=== PATIENT | female | born 1970 ===

== ENCOUNTER → 2018-12-03 | Outpatient (CLI) | payer BC ==
--- NOTE | 2018-12-04 11:35 | MM ---
Reason for exam: screening (asymptomatic). Last mammogram was performed 5 years and 2 months ago. Physical Findings: A clinical breast exam by your physician is recommended on an annual basis and results should be correlated with mammographic findings. MG Screening Mammo w CAD Bilateral CC and MLO view(s) were taken. Prior study comparison: September 18, 2013, bilateral MG screening mammo w CAD. June 15, 2012, bilateral digital screening mammo w/CAD. There are scattered fibroglandular densities. No suspicious abnormality. No significant changes when compared with prior studies. ASSESSMENT: Negative, BI-RAD 1 RECOMMENDATION: Routine screening mammogram of both breasts in 1 year.
== END | disposition home or self-care (01) ==
LOC: RADMAMWWP 13:43
PROVIDERS: ATTEND Obstetrics & Gynecology
DX: Z12.31 Encounter for screening mammogram for malignant neoplasm of breast (principal)
CPT/HCPCS: 77067

== ENCOUNTER → 2019-08-15 | Outpatient (CLI) | payer BC ==
--- NOTE | 2019-08-15 12:14 | US ---
EXAMINATION TYPE: US abdomen limited DATE OF EXAM: 08/15/2019 COMPARISON: NONE CLINICAL HISTORY: Right upper quadrant pain, Nausea R10.11, R11.0. Intermittent right flank pain, shelli sea and bloating x 1 week EXAM MEASUREMENTS: Liver Length: 17.2 cm Gallbladder Wall: 0.2 cm CBD: 0.5 cm Right Kidney: 12.4 x 5.1 x 5.1 cm Pancreas: visualized portions wnl, tail limited by overlying midline bowel gas Liver: measures in upper limits of normal, 14.6 x 15.0 x 12.5cm mostly solid appearing hypoechoic ma ss posterior right lobe Gallbladder: wnl Evidence for sonographic Woodall's sign: no CBD: wnl Right Kidney: wnl IMPRESSION: 1. Appears be a large solid slightly heterogenous mass within the right lobe liver. Additional workup with contrast CT abdomen is recommended. A Yellow level critical message alert has been initiated for HUBERT Tello via the [facility] Critical Results System on 08/15/2019 12:12 PM. This message alert has been sent to HUBERT Tello vi a the preferences provided by the clinician for the receipt of Radiology Critical Findings. Message I [id number].
== END | disposition home or self-care (01) ==
LOC: RADUSWWP 09:42
PROVIDERS: ATTEND Physician Assistant Medical
DX: R16.0 Hepatomegaly, not elsewhere classified (principal)
CPT/HCPCS: 76705

== ENCOUNTER → 2019-08-22 | Outpatient (CLI) | payer BC ==
--- NOTE | 2019-08-22 17:41 | CT ---
EXAMINATION TYPE: CT abdomen wo/w con DATE OF EXAM: 08/22/2019 COMPARISON: HISTORY: abnormal US, liver neoplasm CT DLP: 705.3 mGycm Automated exposure control for dose reduction was used. CONTRAST: Performed without and with IV Contrast, patient injected with 100 mL of Isovue 300. Multiple axial sections were obtained from the diaphragm to the iliac crests without and with IV cont rast. There is also oral contrast. FINDINGS: The lung bases are clear. There is no pleural effusion. Heart size is normal. There is no pericardial effusion. There is a large mixed density mass involving most of the right lobe of the liver that measures 17 cm in anterior posterior dimension. The noncontrast images show higher attenuation in the posterior asp ect that could be areas of hemorrhage. The contrast images show some septal enhancement. Delayed imag es show no persistent contrast to suggest a hemangioma. The spleen appears normal. There is no evidence of pancreatic mass. Stomach appears normal. Heart haider ears normal. There is no pericardial effusion. There is no adrenal mass. Kidneys have normal size and contour. There is no hydronephrosis. There is satisfactory contrast opacification of the kidneys. There is no retroperitoneal adenopathy. Ureters a re not dilated. Appendix appears normal. There is no mesenteric edema. There is no ascites or free ai r. There is no sign of a bowel obstruction. Lumbar spine is intact. There is no compression fracture. There is normal oral contrast opacification of the small bowel. IMPRESSION: Large single mass involving the liver with probably some patchy posterior areas of hemorrhage and nec rosis and patchy enhancement that is suggestive of primary malignancy.
== END | disposition home or self-care (01) ==
LOC: RADCTMAIN 15:06
PROVIDERS: ATTEND Family Medicine
DX: D37.6 Neoplasm of uncertain behavior of liver, gallbladder and bile ducts (principal)
CPT/HCPCS: 74170; Q9967

== ENCOUNTER → 2020-07-30 | Outpatient (CLI) | payer BC ==
--- NOTE | 2020-07-30 08:12 | US ---
EXAMINATION TYPE: US pelvis complete transvag DATE OF EXAM: 07/30/2020 COMPARISON: NONE CLINICAL HISTORY: N88.9 Abn/Bulky cervix seen on CT at [facility]. TECHNIQUE: Transvaginal (TV) and Transabdominal (TA) . Transabdominal sonographic images of the pel vis were acquired. Transvaginal sonographic images were medically necessary to better assess the fol lowing anatomy: cervix and right ovary Date of LMP: Patient has colon cancer, no menses since treatment started which will be a year in Sep EXAM MEASUREMENTS: Uterus: 9.1x 4.7 x 5.0cm Endometrial Stripe: 0.6 cm Right Ovary: Obscured by overlying bowel gas Left Ovary: 2.6 x 1.4 x 1.4 cm 1. Uterus: Anteverted, heterogeneous 2. Endometrium: wnl 3. Right Ovary: Obscured by overlying bowel gas 4. Left Ovary: wnl 5. Bilateral Adnexa: free fluid in right adnexa 6. Posterior cul-de-sac: free fluid Anteverted uterus with surrounding free fluid in pelvis. Endometrial stripe appears within normal cortes its. Left ovary within normal limits. Right ovary not clearly identified. IMPRESSION: Moderate amount of free fluid in pelvic cul-de-sac.
== END | disposition home or self-care (01) ==
LOC: RADUSWWP 07:25
PROVIDERS: ATTEND Obstetrics & Gynecology
DX: N88.9 Noninflammatory disorder of cervix uteri, unspecified (principal)
CPT/HCPCS: 76830; 76856

== ENCOUNTER 2021-05-06 13:44 | Inpatient (IN) | payer BC ==
[2021-05-06] MEDS ORDERED: SODIUM CHLORIDE 0.9% 1,000 ML IV ONE (14:16)
--- NOTE | 2021-05-06 14:17 | ED ---
Recheck HPI - General Chief Complaint: Recheck/Abnormal Lab/Rx Stated Complaint: Low BP Source: patient, EMS Mode of arrival: EMS Limitations: no limitations - History of Present Illness Initial Comments: Taniya is a 89-year-old female with a history of metastatic colorectal cancer for which she underwent therapy at [facility], after failure therapy she began getting experimental therapy in [place]. She has completed her experimental therapy in [place] and is now being given supplements from that team. Patient presents to the ER today via EMS. Home health check on the patient today and she had a systolic blood pressure of 75 therefore EMS was was contacted. Upon EMS arrival patient was profoundly jaundiced, hypotensive appear dehydrated, she is quite weak but able to answer questions appropriately. She confirms that she would like to continue to pursue aggressive care and before code. She complains only of pain in her right upper quadrant which is chronic from the metastatic cancer. - Related Data Home Medications Medication Instructions Recorded Confirmed Justus 0.5mg 2 mg PO TID 05/06/21 05/06/21 Furosemide [Lasix] 20 mg PO BID 05/06/21 05/06/21 Ibuprofen [Motrin Ib] 200 mg PO BID 05/06/21 05/06/21 Samyr 500mg 500 mg PO TID 05/06/21 05/06/21 Skemca 500mg 1,000 mg PO BID 05/06/21 05/06/21 Spironolactone 50 mg PO BID 05/06/21 05/06/21 Ursofalk 250mg 250 mg PO TID 05/06/21 05/06/21 Allergies Allergy/AdvReac Type Severity Reaction Status Date / Time No Known Allergies Allergy Verified 05/06/21 14:48 Review of Systems ROS Statement: Those systems with pertinent positive or pertinent negative responses have been documented in the HPI. ROS Other: All systems not noted in ROS Statement are negative. Past Medical History Past Medical History: Cancer Additional Past Medical History / Comment(s): colorectal & liver metastasis History of Any Multi-Drug Resistant Organisms: None Reported Past Surgical History: Unable to Obtain Past Psychological History: No Psychological Hx Reported Smoking Status: Unknown if ever smoked Past Alcohol Use History: None Reported Past Drug Use History: None Reported General Exam - General Exam Comments Initial Comments: Physical Exam GENERAL: Ill appearing, profoundly jaundice HENT: Normocephalic, Atraumatic. EYES: PERRL, EOMI Scleral icterus PULMONARY: Unlabored respirations. CARDIOVASCULAR: There is a regular rate and rhythm without any murmurs gallops or rubs. ABDOMEN: palpable tender liver SKIN: Jaundice Bilateral tibial IO : Deferred NEUROLOGIC: Patient is alert and oriented x3. Moving all extremities spontaneously with generalized weakness MUSCULOSKELETAL: Atrophy Limitations: no limitations Course Vital Signs 05/06/21 05/06/21 13:45 13:50 Temperature 96.1 F L Pulse Rate 97 95 Respiratory 16 Rate Blood Pressure 74/40 89/53 O2 Sat by Pulse 98 98 Oximetry Medical Decision Making - Medical Decision Making The patient was seen and evaluated, history is obtained from the patient and daughter bedside. This patient is critically ill end-stage terminal metastatic colon cancer and liver failure. Patient was hypotensive on arrival she appears slightly dehydrated jaundice Labs were obtained and have multiple significant abnormalities consistent with the patient's exam and history Meld score is 33, which indicates greater than 50% mortality rate in the next 3 months Patient's daughter would like the patient to receive albumin as she has received this in the past. Patient like to remain in the hospital overnight for IV fluids and albumin. Patient care was discussed with Bree Steward from [facility] hospitalist group who accepts the admission. - Lab Data Result diagrams: 05/06/21 14:29 05/06/21 14:29 Lab Results 05/06/21 05/06/21 05/06/21 Range/Units 14:29 14:29 14:29 WBC 16.8 H (3.8-10.6) k/uL RBC 3.37 L (3.80-5.40) m/uL Hgb 10.9 L (11.4-16.0) gm/dL Hct 31.7 L (34.0-46.0) % MCV 94.1 (80.0-100.0) fL MCH 32.4 (25.0-35.0) pg MCHC 34.4 (31.0-37.0) g/dL RDW 27.9 H (11.5-15.5) % Plt Count 164 (150-450) k/uL MPV 9.2 Neutrophils % 97 % Lymphocytes % 2 % Monocytes % 1 % Eosinophils % 0 % Basophils % 0 % Neutrophils # 16.2 H (1.3-7.7) k/uL Lymphocytes # 0.3 L (1.0-4.8) k/uL Monocytes # 0.2 (0-1.0) k/uL Eosinophils # 0.0 (0-0.7) k/uL Basophils # 0.0 (0-0.2) k/uL Anisocytosis Marked Macrocytosis Moderate PT (9.0-12.0) sec INR (<1.2) APTT (22.0-30.0) sec VBG pH (7.31-7.41) VBG pCO2 (37-51) mmHg VBG HCO3 (24-28) mmol/L Sodium 119 L* (137-145) mmol/L Potassium 4.3 (3.5-5.1) mmol/L Chloride 90 L (98-107) mmol/L Carbon Dioxide 14 L (22-30) mmol/L Anion Gap 15 mmol/L BUN 119 H* (7-17) mg/dL Creatinine 2.28 H (0.52-1.04) mg/dL Est GFR (CKD-EPI)AfAm 28 (>60 ml/min/1.73 sqM) Est GFR (CKD-EPI)NonAf 25 (>60 ml/min/1.73 sqM) Glucose 121 H (74-99) mg/dL Plasma Lactic Acid Kameron 2.3 H* (0.7-2.0) mmol/L Calcium 8.5 (8.4-10.2) mg/dL Magnesium 2.8 H (1.6-2.3) mg/dL Total Bilirubin 28.5 H* (0.2-1.3) mg/dL AST 159 H (14-36) U/L ALT 77 H (4-34) U/L Alkaline Phosphatase 471 H (38-126) U/L Ammonia 36 H (<30) umol/L Total Protein 5.0 L (6.3-8.2) g/dL Albumin 2.4 L (3.5-5.0) g/dL Acetone, Qual Negative (Negative) 05/06/21 05/06/21 Range/Units 14:29 14:41 WBC (3.8-10.6) k/uL RBC (3.80-5.40) m/uL Hgb (11.4-16.0) gm/dL Hct (34.0-46.0) % MCV (80.0-100.0) fL MCH (25.0-35.0) pg MCHC (31.0-37.0) g/dL RDW (11.5-15.5) % Plt Count (150-450) k/uL MPV Neutrophils % % Lymphocytes % % Monocytes % % Eosinophils % % Basophils % % Neutrophils # (1.3-7.7) k/uL Lymphocytes # (1.0-4.8) k/uL Monocytes # (0-1.0) k/uL Eosinophils # (0-0.7) k/uL Basophils # (0-0.2) k/uL Anisocytosis Macrocytosis PT 12.6 H (9.0-12.0) sec INR 1.2 H (<1.2) APTT 26.6 (22.0-30.0) sec VBG pH 7.41 (7.31-7.41) VBG pCO2 27 L (37-51) mmHg VBG HCO3 17 L (24-28) mmol/L Sodium (137-145) mmol/L Potassium (3.5-5.1) mmol/L Chloride (98-107) mmol/L Carbon Dioxide (22-30) mmol/L Anion Gap mmol/L BUN (7-17) mg/dL Creatinine (0.52-1.04) mg/dL Est GFR (CKD-EPI)AfAm (>60 ml/min/1.73 sqM) Est GFR (CKD-EPI)NonAf (>60 ml/min/1.73 sqM) Glucose (74-99) mg/dL Plasma Lactic Acid Kameron (0.7-2.0) mmol/L Calcium (8.4-10.2) mg/dL Magnesium (1.6-2.3) mg/dL Total Bilirubin (0.2-1.3) mg/dL AST (14-36) U/L ALT (4-34) U/L Alkaline Phosphatase (38-126) U/L Ammonia (<30) umol/L Total Protein (6.3-8.2) g/dL Albumin (3.5-5.0) g/dL Acetone, Qual (Negative) Disposition Clinical Impression: Metastatic colon cancer in female, Liver failure, RUDY (acute kidney injury), Hyponatremia Disposition: ADMITTED IP TO THIS HOSP Condition: Critical Is patient prescribed a controlled substance at d/c from ED?: No Referrals: Criselda Bose MD [Primary Care Provider] - 1-2 days
[2021-05-06 14:45] LABS: VBG PH 7.41 (7.31-7.41)
[2021-05-06 14:50] LABS: Lactic Acid, Venous 2.3 mmol/L (0.7-2.0)
[2021-05-06 14:51] LABS: ALT 77 U/L (4-34); AST 159 U/L (14-36); Albumin 2.4 g/dL (3.5-5.0); Alkaline Phosphatase 471 U/L (38-126); Anion Gap 15 mmol/L; Calcium 8.5 mg/dL (8.4-10.2); Carbon Dioxide 14 mmol/L (22-30); Chloride 90 mmol/L (98-107); Glucose 121 mg/dL (74-99); Magnesium 2.8 mg/dL (1.6-2.3); Potassium 4.3 mmol/L (3.5-5.1)
[2021-05-06] MEDS: SODIUM CHLORIDE 0.9% 1,000 ML IV SCH (14:56)
[2021-05-06 14:57] LABS: African American GFR (CKD) 28 (>60 ml/min/1.73 sqM); Non-African American GFR(CKD) 25 (>60 ml/min/1.73 sqM)
[2021-05-06 14:58] LABS: Blood Urea Nitrogen 119 mg/dL (7-17); Sodium 119 mmol/L (137-145)
[2021-05-06 15:00] LABS: Total Bilirubin 28.5 mg/dL (0.2-1.3)
[2021-05-06 15:08] LABS: Anisocytosis Marked; Basophils % (A) 0 %; Eosinophils % (A) 0 %; HCT 31.7 % (34.0-46.0); HGB 10.9 gm/dL (11.4-16.0); Lymphocytes # (A) 0.3 k/uL (1.0-4.8); Lymphocytes % (A) 2 %; MCH 32.4 pg (25.0-35.0); MCHC 34.4 g/dL (31.0-37.0); MCV 94.1 fL (80.0-100.0); Macrocytosis Moderate; Mean Platelet Volume 9.2; Monocytes # (A) 0.2 k/uL (0-1.0); Monocytes % (A) 1 %; Neutrophils # (A) 16.2 k/uL (1.3-7.7); Neutrophils % (A) 97 %; Platelet Count 164 k/uL (150-450); RBC 3.37 m/uL (3.80-5.40); WBC 16.8 k/uL (3.8-10.6)
[2021-05-06 15:10] LABS: RDW 27.9 % (11.5-15.5)
[2021-05-06 15:46] LABS: INR 1.2 (<1.2); Partial Thromboplastin Time 26.6 sec (22.0-30.0); Prothrombin Time 12.6 sec (9.0-12.0)
[2021-05-06] MEDS ORDERED: NALOXONE 0.4 MG/ML 1 ML VIAL IV PRN (15:59)
[2021-05-06] MEDS: ALBUMIN HUMAN 25% 50 ML in EMPTY BAG 1 BAG IVPB SCH ×2 (16:27→16:30)
[2021-05-07 01:10] LABS: Appearance,Urine Cloudy (Clear); Bacteria,Urine Rare /hpf; Bilirubin,Urine 3+ (Negative); Blood,Urine Small (Negative); Color,Urine Dark Brown; Glucose,Urine (UA) Negative (Negative); Hyaline Casts,Urine 24 /lpf (0-2); Ketones,Urine Negative (Negative); Leukocyte Esterase,Urine Moderate (Negative); Mucus,Urine Occasional /hpf; Nitrite,Urine Negative (Negative); Protein,Urine Trace (Negative); RBC,Urine 3 /hpf (0-5); Specific Gravity,Urine 1.013 (1.001-1.035); Squamous Epithelial Cell,Urine 1 /hpf (0-4); WBC,Urine 16 /hpf (0-5)
[2021-05-07] MEDS: SODIUM CHLORIDE 0.9% 1,000 ML IV SCH ×3 (03:18→23:28)
[2021-05-07 11:42] LABS: Anion Gap 15 mmol/L; Calcium 8.3 mg/dL (8.4-10.2); Carbon Dioxide 10 mmol/L (22-30); Chloride 99 mmol/L (98-107); Glucose 109 mg/dL (74-99); Potassium 4.5 mmol/L (3.5-5.1); Sodium 124 mmol/L (137-145)
[2021-05-07 11:46] LABS: Blood Urea Nitrogen 107 mg/dL (7-17)
--- NOTE | 2021-05-07 12:06 | P.HPIM ---
History of Present Illness This is a pleasant 50 years old female with past medical history of colon cancer metastatic to the liver, lung, abdominal wall, she is following up with Dr. Cantu at [facility], last chemotherapy was about 6 months ago, then it was a [place] patient went to [place] to get experimental therapy, she stopped that 2 and came back to that states on 04/24/2021 she looks very weak and barely can tell from her weakness so information were obtained with the help of the daughter at bedside Patient has been getting IV fluids of albumin and [place] which help in her strength and appetite as well. Last week she went to [facility] emergency room where a drain was placed in her left lower abdomen, she visited the ER for abdominal distention, however as per daughter patient was found to have UTI and she was started on Macrobid. Today her visiting nurse was checking on her at noticed her blood pressure on the low side, usually systolic blood pressure running in 90s for her but yesterday was 74/42 so she decided to come to emergency room. Patient she feels very weak and her voice is very low, she can talk 1 or 2 sentences before she got tired. However she is fully awake and oriented to time, place and person as she knows she is in [facility] and others. She denies any dizziness or chest pain or shortness of breath. She has visual abdominal pain from her cancer. But also she's been having diarrhea about 3 times per day for the last 3 days but no vomiting. She eats and drinks little bit. No dysuria or urgency but she has suprapubic tenderness. Repeat labs showed sodium improved 119 up to 124 since 3 PM yesterday total 11 AM this morning, i.e. over 20 hours. She was getting normal saline at 130 mL per hour and the emergency room Review of Systems -CONSTITUTIONAL: No fever, very weak and tired HEENT: No recent visual problems or hearing problems. Denied any sore throat. CARDIOVASCULAR: No orthopnea, PND, no palpitations, no syncope. PULMONARY: No shortness of breath, no cough, no hemoptysis. GASTROINTESTINAL: No diarrhea, no nausea, no vomiting, no abdominal pain. Normoactive bowel sounds. NEUROLOGICAL: No headaches, no weakness, no numbness. HEMATOLOGICAL: Denies any bleeding or petechiae. GENITOURINARY: Denies any burning micturition, frequency, or urgency. MUSCULOSKELETAL/RHEUMATOLOGICAL: Denies any joint pain, swelling, or any muscle pain. ENDOCRINE: Denies any polyuria or polydipsia. Past Medical History Past Medical History: Cancer Additional Past Medical History / Comment(s): colorectal & liver metastasis History of Any Multi-Drug Resistant Organisms: None Reported Past Surgical History: Unable to Obtain Past Psychological History: No Psychological Hx Reported Smoking Status: Unknown if ever smoked Past Alcohol Use History: None Reported Past Drug Use History: None Reported Medications and Allergies Home Medications Medication Instructions Recorded Confirmed Type Justus 0.5mg 2 mg PO TID 05/06/21 05/06/21 History Furosemide [Lasix] 20 mg PO BID 05/06/21 05/06/21 History Ibuprofen [Motrin Ib] 200 mg PO BID 05/06/21 05/06/21 History Samyr 500mg 500 mg PO TID 05/06/21 05/06/21 History Skemca 500mg 1,000 mg PO BID 05/06/21 05/06/21 History Spironolactone 50 mg PO BID 05/06/21 05/06/21 History Ursofalk 250mg 250 mg PO TID 05/06/21 05/06/21 History Allergies Allergy/AdvReac Type Severity Reaction Status Date / Time No Known Allergies Allergy Verified 05/06/21 14:48 Physical Exam Vitals: Vital Signs Temp Pulse Pulse Resp BP BP Pulse Ox 05/07/21 08:45 97.4 F L 97 20 85/49 95 05/07/21 06:00 91 16 88/46 99 05/07/21 04:08 92 16 83/48 96 05/07/21 01:32 59 L 16 91/53 96 05/07/21 00:03 61 18 90/52 95 05/06/21 21:35 57 L 16 95/43 96 05/06/21 19:54 91 18 96/46 100 05/06/21 18:30 86 91/50 99 05/06/21 18:00 90 96/56 99 05/06/21 17:30 92 05/06/21 17:00 85 98/56 99 05/06/21 16:30 87 05/06/21 16:00 83 16 90/56 99 05/06/21 15:30 89 16 87/52 99 05/06/21 15:00 90 17 91/52 99 02/10/22 14:35 92 18 99 05/06/21 13:50 95 89/53 98 05/06/21 13:45 96.1 F L 97 16 74/40 98 GENERAL: The patient is alert and oriented x3, not in any acute distress. Cachectic HEENT: Pupils are round and equally reacting to light. EOMI. No scleral icterus. No conjunctival pallor. Normocephalic, atraumatic. No pharyngeal erythema. No thyromegaly. CARDIOVASCULAR: S1 and S2 present. No murmurs, rubs, or gallops. PULMONARY: Chest is clear to auscultation, no wheezing or crackles. -ABDOMEN: Soft, right upper quadrant tenderness, mild suprapubic tenderness,, distended, normoactive bowel sounds. No palpable organomegaly. yellow discoloration of skin and sclerae, jaundice. Abdominal wall nodule in the epigastric area MUSCULOSKELETAL: No joint swelling or deformity. EXTREMITIES: No cyanosis, clubbing, or pedal edema. NEUROLOGICAL: Gross neurological examination did not reveal any focal deficits. SKIN: No rashes. No petechiae Results CBC & Chem 7: 05/06/21 14:29 05/07/21 11:09 Labs: Abnormal Lab Results - Last 24 Hours (Table) 05/06/21 05/06/21 05/06/21 Range/Units 14:29 14:29 14:29 WBC 16.8 H (3.8-10.6) k/uL RBC 3.37 L (3.80-5.40) m/uL Hgb 10.9 L (11.4-16.0) gm/dL Hct 31.7 L (34.0-46.0) % RDW 27.9 H (11.5-15.5) % Neutrophils # 16.2 H (1.3-7.7) k/uL Lymphocytes # 0.3 L (1.0-4.8) k/uL PT (9.0-12.0) sec INR (<1.2) VBG pCO2 (37-51) mmHg VBG HCO3 (24-28) mmol/L Sodium 119 L* (137-145) mmol/L Chloride 90 L (98-107) mmol/L Carbon Dioxide 14 L (22-30) mmol/L BUN 119 H* (7-17) mg/dL Creatinine 2.28 H (0.52-1.04) mg/dL Glucose 121 H (74-99) mg/dL Plasma Lactic Acid Kameron 2.3 H* (0.7-2.0) mmol/L Calcium (8.4-10.2) mg/dL Magnesium 2.8 H (1.6-2.3) mg/dL Total Bilirubin 28.5 H* (0.2-1.3) mg/dL AST 159 H (14-36) U/L ALT 77 H (4-34) U/L Alkaline Phosphatase 471 H (38-126) U/L Ammonia 36 H (<30) umol/L Total Protein 5.0 L (6.3-8.2) g/dL Albumin 2.4 L (3.5-5.0) g/dL Urine Appearance (Clear) Urine Protein (Negative) Urine Blood (Negative) Urine Bilirubin (Negative) Ur Leukocyte Esterase (Negative) Urine WBC (0-5) /hpf Urine Bacteria (None) /hpf Hyaline Casts (0-2) /lpf Urine Mucus (None) /hpf 05/06/21 05/06/21 05/07/21 Range/Units 14:29 14:41 00:48 WBC (3.8-10.6) k/uL RBC (3.80-5.40) m/uL Hgb (11.4-16.0) gm/dL Hct (34.0-46.0) % RDW (11.5-15.5) % Neutrophils # (1.3-7.7) k/uL Lymphocytes # (1.0-4.8) k/uL PT 12.6 H (9.0-12.0) sec INR 1.2 H (<1.2) VBG pCO2 27 L (37-51) mmHg VBG HCO3 17 L (24-28) mmol/L Sodium (137-145) mmol/L Chloride (98-107) mmol/L Carbon Dioxide (22-30) mmol/L BUN (7-17) mg/dL Creatinine (0.52-1.04) mg/dL Glucose (74-99) mg/dL Plasma Lactic Acid Kameron (0.7-2.0) mmol/L Calcium (8.4-10.2) mg/dL Magnesium (1.6-2.3) mg/dL Total Bilirubin (0.2-1.3) mg/dL AST (14-36) U/L ALT (4-34) U/L Alkaline Phosphatase (38-126) U/L Ammonia (<30) umol/L Total Protein (6.3-8.2) g/dL Albumin (3.5-5.0) g/dL Urine Appearance Cloudy H (Clear) Urine Protein Trace H (Negative) Urine Blood Small H (Negative) Urine Bilirubin 3+ H (Negative) Ur Leukocyte Esterase Moderate H (Negative) Urine WBC 16 H (0-5) /hpf Urine Bacteria Rare H (None) /hpf Hyaline Casts 24 H (0-2) /lpf Urine Mucus Occasional H (None) /hpf 05/07/21 Range/Units 11:09 WBC (3.8-10.6) k/uL RBC (3.80-5.40) m/uL Hgb (11.4-16.0) gm/dL Hct (34.0-46.0) % RDW (11.5-15.5) % Neutrophils # (1.3-7.7) k/uL Lymphocytes # (1.0-4.8) k/uL PT (9.0-12.0) sec INR (<1.2) VBG pCO2 (37-51) mmHg VBG HCO3 (24-28) mmol/L Sodium 124 L (137-145) mmol/L Chloride (98-107) mmol/L Carbon Dioxide 10 L (22-30) mmol/L BUN 107 H* (7-17) mg/dL Creatinine (0.52-1.04) mg/dL Glucose 109 H (74-99) mg/dL Plasma Lactic Acid Kameron (0.7-2.0) mmol/L Calcium 8.3 L (8.4-10.2) mg/dL Magnesium (1.6-2.3) mg/dL Total Bilirubin (0.2-1.3) mg/dL AST (14-36) U/L ALT (4-34) U/L Alkaline Phosphatase (38-126) U/L Ammonia (<30) umol/L Total Protein (6.3-8.2) g/dL Albumin (3.5-5.0) g/dL Urine Appearance (Clear) Urine Protein (Negative) Urine Blood (Negative) Urine Bilirubin (Negative) Ur Leukocyte Esterase (Negative) Urine WBC (0-5) /hpf Urine Bacteria (None) /hpf Hyaline Casts (0-2) /lpf Urine Mucus (None) /hpf Assessment and Plan Assessment: Hyponatremia Acute kidney injury, could be prerenal. However patient was also on Lasix, Aldactone and ibuprofen which are stopped now. Acute urinary tract infection Dehydration and hypovolemia with low borderline blood pressure Colorectal cancer with metastasis to the liver, lung and abdominal Diarrhea, most likely reactive Plan: This is a pleasant 50 years old female presents with hyponatremia, RUDY, dehydration, diarrhea, UTI and metastatic colon cancer Continue with IV fluids and lower the rate to 100 mL/h Monitor sodium and creatinine Start ceftriaxone for UTI and follow-up urine culture Hold Aldactone and Lasix monitor blood pressure. Discontinue ibuprofen check for C. diff Check bladder scan oncology team consult Labs and medication were reviewed.. Continue same treatment. Continue with symptomatic treatment. Resume home medication. Monitor lytes and vitals. DVT and GI prophylaxis. Further recommendations depends on the clinical course of the patient DVT prophylaxis: Subcutaneous heparin GI Prophylaxis: Pepcid PT/OT: Pending Prognosis is guarded
[2021-05-07 13:03] LABS: Anisocytosis Marked; Basophils % (A) 0 %; Eosinophils # (A) 0.1 k/uL (0-0.7); Eosinophils % (A) 0 %; HCT 28.3 % (34.0-46.0); HGB 9.6 gm/dL (11.4-16.0); Hypochromasia Slight; Lymphocytes # (A) 0.3 k/uL (1.0-4.8); Lymphocytes % (A) 1 %; MCHC 33.9 g/dL (31.0-37.0); MCV 97.3 fL (80.0-100.0); Macrocytosis Moderate; Mean Platelet Volume 8.9; Monocytes # (A) 0.2 k/uL (0-1.0); Monocytes % (A) 1 %; Neutrophils # (A) 18.6 k/uL (1.3-7.7); Neutrophils % (A) 97 %; Platelet Count 115 k/uL (150-450); RBC 2.91 m/uL (3.80-5.40); WBC 19.2 k/uL (3.8-10.6)
[2021-05-07 13:07] LABS: RDW 28.5 % (11.5-15.5)
[2021-05-07 13:14] LABS: Albumin 2.5 g/dL (3.5-5.0); Calcium 8.1 mg/dL (8.4-10.2); Potassium 4.2 mmol/L (3.5-5.1)
[2021-05-07 13:24] LABS: Total Bilirubin 28.1 mg/dL (0.2-1.3)
[2021-05-07 13:25] LABS: Total Protein 4.9 g/dL (6.3-8.2)
[2021-05-07] MEDS ORDERED: dexAMETHasone 2 MG TAB PO STA (17:31)
[2021-05-07] MEDS: ALBUMIN HUMAN 25% 50 ML in EMPTY BAG 1 BAG IVPB SCH (18:28)
[2021-05-07 18:32] LABS: INR 1.3 (<1.2); Partial Thromboplastin Time 28.3 sec (22.0-30.0); Prothrombin Time 13.7 sec (9.0-12.0)
--- NOTE | 2021-05-07 19:45 | P.CONS ---
History of Present Illness - Reason for Consult Consult date: 05/07/21 Metastatic Colon Cancer Requesting physician: Bree Niño - Chief Complaint worsening abd pain, distentoion - History of Present Illness Taniya is a 50 year old female with known metastatic colon cancer treated by Dr. Cantu at the [facility]. Last treatment with chemotherapy was 6 months ago per the medical record. Apparently, she sought out additional options for treatment and traveled to [place] for treatment options not offered in the [place], returning to [facility] at the end of March 2021. Apparently recently admitted (a week ago) to [facility] ER for Abdominal distention and UTI, treated with Macrobid and pleurex in abdomen was placed for palliative draining of abdominal ascites. Patient is very weak and appears chronically ill. She was brought to [facility] due to hypotension at home and direction of homecare nurse. Her liver is failing with a total bili of 28 yesterday. BUN is 107, therefore she is uremic and likely not clotting as well. During evaluation daughter at bedside and states she was being treated in [place] with Dendritic cell vaccination, albumin ATC (could be what is contributing to the pictured uremic state), FREDERIC, Dexamethasone and a list of other naturopathic additions. Review of Systems ROS unobtainable: due to mental status All systems: negative Past Medical History Past Medical History: Cancer Additional Past Medical History / Comment(s): colorectal & liver metastasis History of Any Multi-Drug Resistant Organisms: None Reported Past Surgical History: Unable to Obtain Past Anesthesia/Blood Transfusion Reactions: No Reported Reaction Past Psychological History: No Psychological Hx Reported Smoking Status: Unknown if ever smoked Past Alcohol Use History: None Reported Past Drug Use History: None Reported Medications and Allergies Home Medications Medication Instructions Recorded Confirmed Type Justus 0.5mg 2 mg PO TID 05/06/21 05/06/21 History Furosemide [Lasix] 20 mg PO BID 05/06/21 05/06/21 History Ibuprofen [Motrin Ib] 200 mg PO BID 05/06/21 05/06/21 History Samyr 500mg 500 mg PO TID 05/06/21 05/06/21 History Skemca 500mg 1,000 mg PO BID 05/06/21 05/06/21 History Spironolactone 50 mg PO BID 05/06/21 05/06/21 History Ursofalk 250mg 250 mg PO TID 05/06/21 05/06/21 History Allergies Allergy/AdvReac Type Severity Reaction Status Date / Time No Known Allergies Allergy Verified 05/06/21 14:48 Physical Exam Vitals: Vital Signs Temp Pulse Pulse Resp BP BP Pulse Ox 05/07/21 08:45 97.4 F L 97 20 85/49 95 05/07/21 06:00 91 16 88/46 99 05/07/21 04:08 92 16 83/48 96 05/07/21 01:32 59 L 16 91/53 96 05/07/21 00:03 61 18 90/52 95 05/06/21 21:35 57 L 16 95/43 96 05/06/21 19:54 91 18 96/46 100 05/06/21 18:30 86 91/50 99 05/06/21 18:00 90 96/56 99 05/06/21 17:30 92 05/06/21 17:00 85 98/56 99 05/06/21 16:30 87 05/06/21 16:00 83 16 90/56 99 05/06/21 15:30 89 16 87/52 99 05/06/21 15:00 90 17 91/52 99 05/06/21 14:35 92 18 99 05/06/21 13:50 95 89/53 98 05/06/21 13:45 96.1 F L 97 16 74/40 98 Intake and Output 05/06/21 05/07/21 05/07/21 22:59 06:59 14:59 Other: Weight 56.699 kg Jaundice Ill appearing Weak Abdominal distention Edema Irreg Shallow breathes Results CBC & Chem 7: 05/07/21 12:34 05/07/21 12:34 Labs: Abnormal Lab Results - Last 24 Hours (Table) 05/06/21 05/06/21 05/06/21 Range/Units 14:29 14:29 14:29 WBC 16.8 H (3.8-10.6) k/uL RBC 3.37 L (3.80-5.40) m/uL Hgb 10.9 L (11.4-16.0) gm/dL Hct 31.7 L (34.0-46.0) % RDW 27.9 H (11.5-15.5) % Neutrophils # 16.2 H (1.3-7.7) k/uL Lymphocytes # 0.3 L (1.0-4.8) k/uL PT (9.0-12.0) sec INR (<1.2) VBG pCO2 (37-51) mmHg VBG HCO3 (24-28) mmol/L Sodium 119 L* (137-145) mmol/L Chloride 90 L (98-107) mmol/L Carbon Dioxide 14 L (22-30) mmol/L BUN 119 H* (7-17) mg/dL Creatinine 2.28 H (0.52-1.04) mg/dL Glucose 121 H (74-99) mg/dL Plasma Lactic Acid Kameron 2.3 H* (0.7-2.0) mmol/L Calcium (8.4-10.2) mg/dL Magnesium 2.8 H (1.6-2.3) mg/dL Total Bilirubin 28.5 H* (0.2-1.3) mg/dL AST 159 H (14-36) U/L ALT 77 H (4-34) U/L Alkaline Phosphatase 471 H (38-126) U/L Ammonia 36 H (<30) umol/L Total Protein 5.0 L (6.3-8.2) g/dL Albumin 2.4 L (3.5-5.0) g/dL Urine Appearance (Clear) Urine Protein (Negative) Urine Blood (Negative) Urine Bilirubin (Negative) Ur Leukocyte Esterase (Negative) Urine WBC (0-5) /hpf Urine Bacteria (None) /hpf Hyaline Casts (0-2) /lpf Urine Mucus (None) /hpf 05/06/21 05/06/21 05/07/21 Range/Units 14:29 14:41 00:48 WBC (3.8-10.6) k/uL RBC (3.80-5.40) m/uL Hgb (11.4-16.0) gm/dL Hct (34.0-46.0) % RDW (11.5-15.5) % Neutrophils # (1.3-7.7) k/uL Lymphocytes # (1.0-4.8) k/uL PT 12.6 H (9.0-12.0) sec INR 1.2 H (<1.2) VBG pCO2 27 L (37-51) mmHg VBG HCO3 17 L (24-28) mmol/L Sodium (137-145) mmol/L Chloride (98-107) mmol/L Carbon Dioxide (22-30) mmol/L BUN (7-17) mg/dL Creatinine (0.52-1.04) mg/dL Glucose (74-99) mg/dL Plasma Lactic Acid Kameron (0.7-2.0) mmol/L Calcium (8.4-10.2) mg/dL Magnesium (1.6-2.3) mg/dL Total Bilirubin (0.2-1.3) mg/dL AST (14-36) U/L ALT (4-34) U/L Alkaline Phosphatase (38-126) U/L Ammonia (<30) umol/L Total Protein (6.3-8.2) g/dL Albumin (3.5-5.0) g/dL Urine Appearance Cloudy H (Clear) Urine Protein Trace H (Negative) Urine Blood Small H (Negative) Urine Bilirubin 3+ H (Negative) Ur Leukocyte Esterase Moderate H (Negative) Urine WBC 16 H (0-5) /hpf Urine Bacteria Rare H (None) /hpf Hyaline Casts 24 H (0-2) /lpf Urine Mucus Occasional H (None) /hpf 05/07/21 Range/Units 11:09 WBC (3.8-10.6) k/uL RBC (3.80-5.40) m/uL Hgb (11.4-16.0) gm/dL Hct (34.0-46.0) % RDW (11.5-15.5) % Neutrophils # (1.3-7.7) k/uL Lymphocytes # (1.0-4.8) k/uL PT (9.0-12.0) sec INR (<1.2) VBG pCO2 (37-51) mmHg VBG HCO3 (24-28) mmol/L Sodium 124 L (137-145) mmol/L Chloride (98-107) mmol/L Carbon Dioxide 10 L (22-30) mmol/L BUN 107 H* (7-17) mg/dL Creatinine (0.52-1.04) mg/dL Glucose 109 H (74-99) mg/dL Plasma Lactic Acid Kameron (0.7-2.0) mmol/L Calcium 8.3 L (8.4-10.2) mg/dL Magnesium (1.6-2.3) mg/dL Total Bilirubin (0.2-1.3) mg/dL AST (14-36) U/L ALT (4-34) U/L Alkaline Phosphatase (38-126) U/L Ammonia (<30) umol/L Total Protein (6.3-8.2) g/dL Albumin (3.5-5.0) g/dL Urine Appearance (Clear) Urine Protein (Negative) Urine Blood (Negative) Urine Bilirubin (Negative) Ur Leukocyte Esterase (Negative) Urine WBC (0-5) /hpf Urine Bacteria (None) /hpf Hyaline Casts (0-2) /lpf Urine Mucus (None) /hpf Assessment and Plan (1) Uremic syndrome Current Visit: Yes Status: Acute Code(s): N19 - UNSPECIFIED KIDNEY FAILURE SNOMED Code(s): 43233082 (2) RUDY (acute kidney injury) Current Visit: Yes Status: Acute Code(s): N17.9 - ACUTE KIDNEY FAILURE, UNSPECIFIED SNOMED Code(s): 25665833 (3) Hyponatremia Current Visit: Yes Status: Acute Code(s): E87.1 - HYPO-OSMOLALITY AND HYPONATREMIA SNOMED Code(s): 72849285 (4) Liver failure Narrative/Plan: Total Bilirubin is 28, AST/ALT decreased this could be sign of biliary obstruction therefore will further assess with ultrasound. Add lactulose Current Visit: Yes Status: Acute Code(s): K72.90 - HEPATIC FAILURE, UNSPECIFIED WITHOUT COMA SNOMED Code(s): 27420273 (5) Metastatic colon cancer in female Narrative/Plan: Most recently treated in [place] with unapproved medication after progression through [facility]. Cantu at of Overall prognosis is very poor, patient and daughter are not ready for this realistic fact They have asked for continuation of medication prescribed in [place], explanation of inability to continue off label treatment but ok for albumin tid with third spacing, and to continue frederic. Dexamethasone completed. Current Visit: Yes Status: Acute Code(s): C18.9 - MALIGNANT NEOPLASM OF COLON, UNSPECIFIED SNOMED Code(s): 015043051 (6) Encephalopathy Narrative/Plan: Lactulose Current Visit: Yes Status: Acute Code(s): G93.40 - ENCEPHALOPATHY, UNSPECI FIED SNOMED Code(s): 85560172 Plan: Check stat coags and recheck LFTs. Overall prognosis is very poor Physician Attest: I have completed the full history and physical, developed the above assessment and plan and agree with above dictation, dictated as a ascribe
[2021-05-07] MEDS ORDERED: HEPARIN SODIUM,PORCINE/PF 5,000 UNIT/0.5 ML SYRINGE SQ SCH (21:00)
[2021-05-07] MEDS ORDERED: FUROSEMIDE 20 MG TAB PO STA (21:21)
[2021-05-07] MEDS: SPIRONOLACTONE 25 MG TAB PO SCH (22:16)
[2021-05-07] MEDS: LACTULOSE 20 GM/30 ML CUP PO SCH (23:28)
[2021-05-07] MEDS: FAMOTIDINE 20 MG/2 ML VIAL IV SCH (23:28)
[2021-05-08] MEDS: SODIUM CHLORIDE 0.9% 1,000 ML IV SCH ×2 (00:25→12:01)
[2021-05-08] MEDS: ALBUMIN HUMAN 25% 50 ML in EMPTY BAG 1 BAG IVPB SCH ×6 (00:26→18:16)
[2021-05-08] MEDS: metroNIDAZOLE-NS PMX 500 MG in SALINE 1 100ML.BAG IVPB SCH ×3 (00:28→15:32)
--- NOTE | 2021-05-08 08:05 | US ---
EXAMINATION TYPE: US abd limited kidneys/bladder DATE OF EXAM: 05/08/2021 COMPARISON: US CLINICAL HISTORY: rudy. RUDY, abnormal LFT's, known metastatic colon CA EXAM MEASUREMENTS: Liver Length: 18.9 cm CBD: 0.8 cm Right Kidney: 10.0 x 4.6 x 6.6 cm Left Kidney: 10.3 x 5.6 x 4.9 cm Pancreas: Obscured by bowel gas Liver: Enlarged, heterogeneous with innumerable masses scattered throughout, especially within right lobe Gallbladder: Unable to visualize due to large liver CBD: Dilated Right Kidney: No evidence of hydro Left Kidney: Difficult to visualize- pt immobile, and overlying bowel gas Bladder: wnl Bilateral Jets Seen No Incidental findings, spleen upper limits of normal for size, mild ascites, possible complex mass vs . septated ascites within midline pelvis, just superior to bladder= 17.9 x 11.2 x 15.1 cm IMPRESSION: 1. No evidence of obstructive uropathy. 2. A complex area within the abdomen is reported by the audit specialist, could represent additional site of metastatic colon cancer, complex complex ascites versus other pelvic etiologies. Cross-sectional i maging IV contrast would provide clarity. 3. Redemonstration of hepatic mass, seen dating back to 08/22/2019 4. Enlarged common bile duct
[2021-05-08] MEDS: SPIRONOLACTONE 25 MG TAB PO SCH ×2 (08:38→20:31)
[2021-05-08] MEDS: FUROSEMIDE 20 MG TAB PO SCH ×2 (08:38→08:46)
[2021-05-08] MEDS: LACTULOSE 20 GM/30 ML CUP PO SCH (08:38)
[2021-05-08] MEDS: FAMOTIDINE 20 MG/2 ML VIAL IV SCH (09:19)
[2021-05-08 09:37] LABS: Anisocytosis Marked; Basophils % (A) 0 %; Eosinophils % (A) 0 %; Hypochromasia Slight; Lymphocytes # (A) 0.3 k/uL (1.0-4.8); Lymphocytes % (A) 2 %; MCH 32.3 pg (25.0-35.0); MCHC 32.9 g/dL (31.0-37.0); MCV 98.3 fL (80.0-100.0); Macrocytosis Marked; Monocytes # (A) 0.2 k/uL (0-1.0); Monocytes % (A) 1 %; Neutrophils % (A) 97 %; RBC 2.34 m/uL (3.80-5.40); WBC 15.5 k/uL (3.8-10.6)
[2021-05-08 09:41] LABS: Albumin 2.7 g/dL (3.5-5.0); Bilirubin, Conjugated 17.7 mg/dL (0.0-0.3); Bilirubin,Unconjugated 2.2 mg/dL (0.0-1.1); Calcium 8.3 mg/dL (8.4-10.2); Potassium 3.9 mmol/L (3.5-5.1)
[2021-05-08 09:47] LABS: HGB 7.6 gm/dL (11.4-16.0); RDW 30.2 % (11.5-15.5)
[2021-05-08 09:48] LABS: Bilirubin, Delta 5.6 mg/dL (0.0-0.2)
[2021-05-08 09:53] LABS: Total Bilirubin 25.5 mg/dL (0.2-1.3)
[2021-05-08 09:54] LABS: Total Protein 4.8 g/dL (6.3-8.2)
[2021-05-08 11:29] LABS: Platelet Count 82 k/uL (150-450); Target Cells Present
[2021-05-08] MEDS: PANTOPRAZOLE 40 MG/10 ML VIAL IVP SCH (12:01)
--- NOTE | 2021-05-08 14:25 | PN ---
PROGRESS NOTE DATE OF SERVICE: 05/08/2021 CHIEF COMPLAINT: Very weak. Taniya seen today in followup. She is very weak. She is very cachectic. She denies any fever or chills or nausea or vomiting. CURRENT MEDICATION: Reviewed in her electronic medical record. PHYSICAL EXAMINATION: She is alert, oriented x3. She is very cachectic-looking and yellow-looking. She does not appear to be in pain. VITAL SIGNS: Temperature 97.4, pulse 92, respiration 18, blood pressure 93/61. HEENT: Normocephalic, atraumatic. She has significant scleral icterus. NECK: Supple. Lungs are clear. Heart is tachy. Abdomen is distended. Positive hepatomegaly. Extremities reveal trace edema. Skin is yellow, with multiple bruises. LAB DATA: WBC 15.5, hemoglobin 7.6, hematocrit 23.0, platelets 82. Sodium 128, potassium 3.9, chloride 101. BUN is 97, creatinine 1.2. AST is 104, ALT is 49, alkaline phosphatase is 315, and total bilirubin is 25.5. IMPRESSION: 1. End-stage colon carcinoma. Apparently the patient failed multiple lines of systemic treatment and subsequently went to [place] seeking alternative therapy. 2. Liver failure secondary to above. 3. Generalized cachexia and very poor performance status. RECOMMENDATIONS: 1. Overall prognosis is poor, but the patient and her daughter have unrealistic expectations and they are still hoping to seek additional treatment in [place] in the future. 2. Continue supportive care at this point in time and hopefully she may have some improvement in her overall condition, but that is doubtful. MMODL / IJN: [id number] /
--- NOTE | 2021-05-08 16:00 | P.PN ---
Subjective This is a pleasant 50 years old female with past medical history of colon cancer metastatic to the liver, lung, abdominal wall, she is following up with Dr. Cantu at [facility], last chemotherapy was about 6 months ago, then it was a Mau patient went to [place] to get experimental therapy, she stopped that 2 and came back to that states on 04/24/2021 she looks very weak and barely can tell from her weakness so information were obtained with the help of the daughter at bedside Patient has been getting IV fluids of albumin and [place] which help in her strength and appetite as well. Last week she went to [facility] emergency room where a drain was placed in her left lower abdomen, she visited the ER for abdominal distention, however as per daughter patient was found to have UTI and she was started on Macrobid. Today her visiting nurse was checking on her at noticed her blood pressure on the low side, usually systolic blood pressure running in 90s for her but yesterday was 74/42 so she decided to come to emergency room. Patient she feels very weak and her voice is very low, she can talk 1 or 2 sentences before she got tired. However she is fully awake and oriented to time, place and person as she knows she is in [facility] and others. She denies any dizziness or chest pain or shortness of breath. She has visual abdominal pain from her cancer. But also she's been having diarrhea about 3 times per day for the last 3 days but no vomiting. She eats and drinks little bit. No dysuria or urgency but she has suprapubic tenderness. Repeat labs showed sodium improved 119 up to 124 since 3 PM yesterday total 11 AM this morning, i.e. over 20 hours. She was getting normal saline at 130 mL per hour and the emergency room 05/08/2021 Patient slightly better today, she is fully awake and oriented to time, place and person, she is not confused today for hepatic encephalopathy is not suspected and does not need to be treated. Patient already has diarrhea 3-4 times this morning therefore lactulose was discontinued. This diarrhea is present on admission and is unrelated to lactulose. Acute gastroenteritis versus UTI is suspected. Protonix calcitonin is elevated 8.1 and patient is placed on ceftriaxone and IV Flagyl with gentle hydration also received IV of vomiting per oncology/hematology team. Urine culture is pending. Borderline blood pressure is expected as she has liver disease desires infection. Her liver function tests improvement creatinine down slowly 2.0-1.9 we will keep monitoring. Sodium improved 123 up to 128 in 24 hours. There is evidence of hemo-delusion with WBC 19.2 down to 15.5, hemoglobin 9.6 down to 7.6 and platelets 115 to 82.. Prognosis remains very poor Last night patient and daughter give her medication outside and without approval of the hospital staff, it was addressed by the bedside nurse during the consumer loan specialist, please refer to her notes. Patient and daughter consult to take indication only from the hospital and they agree Liver ultrasound showing hepatomegaly with masses, dilated common bile duct, complex area could be complex ascites versus metastatic mass in the abdomen. No obstructive uropathy Review of systems, except what is mentioned above CONSTITUTIONAL: No fever, no malaise, no fatigue. HEENT: No recent visual problems or hearing problems. Denied any sore throat. CARDIOVASCULAR: No orthopnea, PND, no palpitations, no syncope. PULMONARY: No shortness of breath, no cough, no hemoptysis. GASTROINTESTINAL: No diarrhea, no nausea, no vomiting, no abdominal pain. Normoactive bowel sounds. NEUROLOGICAL: No headaches, no weakness, no numbness. Active Medications Generic Name Dose Route Start Last Admin Trade Name Freq PRN Reason Stop Dose Admin Furosemide 20 mg 05/08/21 09:00 05/08/21 08:46 Furosemide 20 Mg Tab PO Not Given BID@0900,1600 AG Sodium Chloride 1,000 mls @ 100 mls/hr 05/06/21 14:30 05/08/21 12:01 Saline 0.9% IV 100 mls/hr .Q10H AG Administration Ceftriaxone Sodium 1 gm/ 50 mls @ 100 mls/hr 05/07/21 22:15 05/08/21 09:18 Sodium Chloride IVPB 100 mls/hr BID AG Administration Metronidazole 500 mg/ IV 100 mls @ 100 mls/hr 05/08/21 00:00 05/08/21 15:32 Solution IVPB 100 mls/hr Q8HR AG Administration Albumin Human 50 ml/ IV 50 mls @ 50 mls/hr 05/08/21 08:00 05/08/21 14:07 Solution IVPB 05/08/21 16:59 50 mls/hr Q8HR AG Administration Albumin Human 50 ml/ IV 50 mls @ 50 mls/hr 05/08/21 09:00 05/08/21 15:23 Solution IVPB 05/08/21 17:59 Not Given Q8H [facility] Naloxone HCl 0.2 mg 05/06/21 15:59 Naloxone 0.4 Mg/Ml 1 Ml Vial IV Q2M PRN Opioid Reversal Pantoprazole Sodium 40 mg 05/08/21 10:15 05/08/21 12:01 Pantoprazole 40 Mg/10 Ml Vial IVP Not Given DAILY [facility] Spironolactone 50 mg 05/07/21 21:00 05/08/21 08:38 Spironolactone 25 Mg Tab PO Not Given BID [facility] Objective - Vital Signs Vital signs: Vital Signs Temp 97.4 F L 05/08/21 08:00 Pulse 92 05/08/21 12:07 Resp 18 05/08/21 12:07 BP 93/61 05/08/21 12:07 Pulse Ox 98 05/08/21 12:07 Intake & Output 05/07/21 05/08/21 05/08/21 18:59 06:59 18:59 Intake Total 240 1310 Output Total 350 Balance 240 960 Intake: Intake, IV Titration 950 Amount Albumin Human 25% 50 ml 50 In Empty Bag 1 bag @ 50 mls/hr IVPB Q8HR [facility] Rx#: [id number] Sodium Chloride 0.9% 1, 700 000 ml @ 100 mls/hr IV . Q10H AG Rx#:[id number] cefTRIAXone 1 gm In 100 Sodium Chloride 0.9% 50 ml @ 100 mls/hr IVPB BID AG Rx#:[id number] metroNIDAZOLE-NS PMX 500 100 mg In Saline 1 100ml.bag @ 100 mls/hr IVPB Q8HR AG Rx#:[id number] Oral 240 360 Output: Urine 350 Other: # Voids 3 3 # Bowel Movements 2 3 - Exam -GENERAL: The patient is alert and oriented x3, not in any acute distress. Cachectic, jaundiced HEENT: Pupils are round and equally reacting to light. EOMI. No scleral icterus. No conjunctival pallor. Normocephalic, atraumatic. No pharyngeal erythema. No thyromegaly. CARDIOVASCULAR: S1 and S2 present. No murmurs, rubs, or gallops. PULMONARY: Chest is clear to auscultation, no wheezing or crackles. -ABDOMEN: Soft, right upper quadrant tenderness, mild suprapubic tenderness,, less distended, normoactive bowel sounds. No palpable organomegaly. yellow discoloration of skin and sclerae, jaundice. Abdominal wall nodule in the epigastric area MUSCULOSKELETAL: No joint swelling or deformity. EXTREMITIES: No cyanosis, clubbing, or pedal edema. NEUROLOGICAL: Gross neurological examination did not reveal any focal deficits. SKIN: No rashes. No petechiae - Labs CBC & Chem 7: 05/08/21 08:49 05/08/21 08:49 Labs: Abnormal Lab Results - Last 24 Hours (Table) 05/07/21 05/07/21 05/07/21 Range/Units 12:34 12:34 17:48 WBC (3.8-10.6) k/uL RBC (3.80-5.40) m/uL Hgb (11.4-16.0) gm/dL Hct (34.0-46.0) % RDW (11.5-15.5) % Plt Count (150-450) k/uL Neutrophils # (1.3-7.7) k/uL Lymphocytes # (1.0-4.8) k/uL Macrocytosis PT 13.7 H (9.0-12.0) sec INR 1.3 H (<1.2) Sodium 123 L (137-145) mmol/L Carbon Dioxide 11 L (22-30) mmol/L BUN 107 H* (7-17) mg/dL Creatinine 2.01 H (0.52-1.04) mg/dL Glucose 112 H (74-99) mg/dL Calcium 8.1 L (8.4-10.2) mg/dL Total Bilirubin 28.1 H* (0.2-1.3) mg/dL Conjugated Bilirubin (0.0-0.3) mg/dL Unconjugated Bilirubin (0.0-1.1) mg/dL Delta Bilirubin (0.0-0.2) mg/dL AST 123 H (14-36) U/L ALT 62 H (4-34) U/L Alkaline Phosphatase 384 H (38-126) U/L Total Protein 4.9 L (6.3-8.2) g/dL Albumin 2.5 L (3.5-5.0) g/dL Procalcitonin 8.19 H (0.02-0.09) ng/mL 05/08/21 05/08/21 Range/Units 08:49 08:49 WBC 15.5 H (3.8-10.6) k/uL RBC 2.34 L (3.80-5.40) m/uL Hgb 7.6 L D (11.4-16.0) gm/dL Hct 23.0 L (34.0-46.0) % RDW 30.2 H (11.5-15.5) % Plt Count 82 L (150-450) k/uL Neutrophils # 15.0 H (1.3-7.7) k/uL Lymphocytes # 0.3 L (1.0-4.8) k/uL Macrocytosis Marked A PT (9.0-12.0) sec INR (<1.2) Sodium 128 L (137-145) mmol/L Carbon Dioxide 12 L (22-30) mmol/L BUN 97 H (7-17) mg/dL Creatinine 1.90 H (0.52-1.04) mg/dL Glucose 113 H (74-99) mg/dL Calcium 8.3 L (8.4-10.2) mg/dL Total Bilirubin 25.5 H* (0.2-1.3) mg/dL Conjugated Bilirubin 17.7 H (0.0-0.3) mg/dL Unconjugated Bilirubin 2.2 H (0.0-1.1) mg/dL Delta Bilirubin 5.6 H (0.0-0.2) mg/dL AST 104 H (14-36) U/L ALT 49 H (4-34) U/L Alkaline Phosphatase 315 H (38-126) U/L Total Protein 4.8 L (6.3-8.2) g/dL Albumin 2.7 L (3.5-5.0) g/dL Procalcitonin (0.02-0.09) ng/mL Microbiology - Last 24 Hours (Table) 05/07/21 00:48 Urine Culture - Preliminary Urine,Voided Assessment and Plan Assessment: Hyponatremia Acute kidney injury, could be prerenal. However patient was also on Lasix, Aldactone and ibuprofen which are stopped now. Acute urinary tract infection Dehydration and hypovolemia with low borderline blood pressure Colorectal cancer with metastasis to the liver, lung and abdominal Diarrhea, most likely reactive Plan: This is a pleasant 50 years old female presents with hyponatremia, RUDY, dehydration, diarrhea, UTI and metastatic colon cancer Continue with IV fluids and lower the rate to 100 mL/h Monitor sodium and creatinine Start ceftriaxone for UTI and follow-up urine culture . At Flagyl Continue with Aldactone and Lasix monitor blood pressure. Discontinue ibuprofen check for C. diff Check bladder scan oncology team consult Labs and medication were reviewed.. Continue same treatment. Continue with symptomatic treatment. Resume home medication. Monitor lytes and vitals. DVT and GI prophylaxis. Further recommendations depends on the clinical course of the patient DVT prophylaxis: Subcutaneous heparin GI Prophylaxis: Pepcid PT/OT: Pending Prognosis is guarded
[2021-05-09] MEDS: metroNIDAZOLE-NS PMX 500 MG in SALINE 1 100ML.BAG IVPB SCH ×4 (00:03→23:53)
[2021-05-09] MEDS: SODIUM CHLORIDE 0.9% 1,000 ML IV SCH ×2 (00:04→05:13)
[2021-05-09 09:08] LABS: Magnesium 2.7 mg/dL (1.5-2.4)
[2021-05-09] MEDS: SPIRONOLACTONE 25 MG TAB PO SCH ×2 (09:29→21:56)
[2021-05-09] MEDS: PANTOPRAZOLE 40 MG/10 ML VIAL IVP SCH (09:29)
[2021-05-09] MEDS: FUROSEMIDE 20 MG TAB PO SCH ×2 (09:30→16:29)
[2021-05-09 09:42] LABS: African American GFR (CKD) 50.1 (60.0-200.0); Albumin 3.2 g/dL (3.8-4.9); Albumin/Globulin Ratio 4.46 (1.60-3.17); Anion Gap 16.5 mmol/L (10.00-18.00); BUN/Creat Ratio 48.94 Ratio (12.00-20.00); Blood Urea Nitrogen 69.5 mg/dL (9.0-27.0); Calcium 8.3 mg/dL (8.7-10.3); Carbon Dioxide 13.9 mmol/L (20.0-27.5); Globulin 0.7 g/dL (1.6-3.3); Potassium 3.5 mmol/L (3.5-5.5); Total Bilirubin 20.1 mg/dL (0.30-1.20); Total Protein 3.9 g/dL (6.2-8.2)
[2021-05-09 09:46] LABS: Basophils # (A) 0.01 X 10*3/uL (0.00-0.10); Basophils % (A) 0 %; Eosinophils # (A) 0 X 10*3/uL (0.04-0.35); Eosinophils % (A) 0 %; HCT 20.5 % (37.2-46.3); Immature Grans, Automated 0.9 %; Lymphocytes # (A) 0.38 X 10*3/uL (0.90-5.00); Lymphocytes % (A) 1.8 %; MCHC 32.7 g/dL (32.0-37.0); MCV 94.9 fL (80.0-97.0); Mean Platelet Volume 11.7 fL (9.5-12.2); Monocytes % (A) 1.4 %; NRBC Per 100 WBC 0.1 /100 WBCS (0.0-0.0); Neutrophils # (A) 20.62 X 10*3/uL (1.80-7.70); Neutrophils % (A) 95.9 %; Platelet Count 77 X 10*3/uL (140-440); RBC 2.16 X 10*6/uL (4.10-5.20)
[2021-05-09 09:47] LABS: Anisocytosis (M) 3+; Hypochromasia (M) 2+
[2021-05-09 09:55] LABS: Non-African American GFR(CKD) 43.3 (60.0-200.0)
[2021-05-09 10:02] LABS: HGB 6.7 g/dL (12.0-15.0); Immature Platelet Fraction 8.2 % (1.1-6.1)
[2021-05-09] MEDS ORDERED: FUROSEMIDE 10 MG/ML 2 ML VIAL IV ONE (13:34)
[2021-05-09] MEDS ORDERED: MIDODRINE 5 MG TAB PO SCH (16:00)
--- NOTE | 2021-05-09 16:07 | P.PN ---
Subjective This is a pleasant 50 years old female with past medical history of colon cancer metastatic to the liver, lung, abdominal wall, she is following up with Dr. Cantu at [facility], last chemotherapy was about 6 months ago, then it was a Mau patient went to [place] to get experimental therapy, she stopped that 2 and came back to that states on 04/24/2021 she looks very weak and barely can tell from her weakness so information were obtained with the help of the daughter at bedside Patient has been getting IV fluids of albumin and [place] which help in her strength and appetite as well. Last week she went to [facility] emergency room where a drain was placed in her left lower abdomen, she visited the ER for abdominal distention, however as per daughter patient was found to have UTI and she was started on Macrobid. Today her visiting nurse was checking on her at noticed her blood pressure on the low side, usually systolic blood pressure running in 90s for her but yesterday was 74/42 so she decided to come to emergency room. Patient she feels very weak and her voice is very low, she can talk 1 or 2 sentences before she got tired. However she is fully awake and oriented to time, place and person as she knows she is in [facility] and others. She denies any dizziness or chest pain or shortness of breath. She has visual abdominal pain from her cancer. But also she's been having diarrhea about 3 times per day for the last 3 days but no vomiting. She eats and drinks little bit. No dysuria or urgency but she has suprapubic tenderness. Repeat labs showed sodium improved 119 up to 124 since 3 PM yesterday total 11 AM this morning, i.e. over 20 hours. She was getting normal saline at 130 mL per hour and the emergency room 05/08/2021 Patient slightly better today, she is fully awake and oriented to time, place and person, she is not confused today for hepatic encephalopathy is not suspected and does not need to be treated. Patient already has diarrhea 3-4 times this morning therefore lactulose was discontinued. This diarrhea is present on admission and is unrelated to lactulose. Acute gastroenteritis versus UTI is suspected. Protonix calcitonin is elevated 8.1 and patient is placed on ceftriaxone and IV Flagyl with gentle hydration also received IV of vomiting per oncology/hematology team. Urine culture is pending. Borderline blood pressure is expected as she has liver disease desires infection. Her liver function tests improvement creatinine down slowly 2.0-1.9 we will keep monitoring. Sodium improved 123 up to 128 in 24 hours. There is evidence of hemo-delusion with WBC 19.2 down to 15.5, hemoglobin 9.6 down to 7.6 and platelets 115 to 82.. Prognosis remains very poor Last night patient and daughter give her medication outside and without approval of the hospital staff, it was addressed by the bedside nurse during the shift leader, please refer to her notes. Patient and daughter consult to take indication only from the hospital and they agree Liver ultrasound showing hepatomegaly with masses, dilated common bile duct, complex area could be complex ascites versus metastatic mass in the abdomen. No obstructive uropathy 05/09/2021 Patient today reports improvement, however she still generally weak and jaundiced. Her abdominal distention is significantly lost almost gone today on examination and her right upper quadrant tenderness and suprapubic tenderness present on admission are completely resolved today. Patient not sure if he still have diarrhea and how many times. Daughter at bedside as well. Her labs showing improvement with WBC went up slightly to 21.5 but her procalcitonin improved 8.1 down to 3.0. Platelets still low 77 which is expected however her hemoglobin coming down to 9.6, 7.6 and today 6.7 and there is no evidence of bleeding, we will order anemia workup. Also went on to repeat hemoglobin in the evening and if drops less than 6.5 we'll give 1 unit of blood transfusion. Creatinine actually back to reference range today at 1.4, sodium improved 133, there were enzymes still trending down with AST 97 and ALT 45 bilirubin although still significantly elevated but is also coming nicely down 28, 25 and 20 today. Blood pressure on the low side 77/61, IV fluids were already stopped therefore we going to give albumin times one also with lower the dose of Aldactone 50 down to 25 mg twice a day. Also patient remains on small dose of Lasix 20 mg twice a day. In the meantime she remains on ceftriaxone, IV Flagyl, Objective - Vital Signs Vital signs: Vital Signs Temp 97.5 F L 05/09/21 05:00 Pulse 95 05/09/21 05:00 Resp 16 05/09/21 05:00 BP 95/57 05/09/21 05:00 Pulse Ox 100 05/09/21 05:00 Intake & Output 05/08/21 05/09/21 05/09/21 18:59 06:59 18:59 Intake Total 1350 Balance 1350 Intake: Intake, IV Titration 1350 Amount Sodium Chloride 0.9% 1, 1200 000 ml @ 100 mls/hr IV . Q10H AG Rx#:[id number] cefTRIAXone 1 gm In 50 Sodium Chloride 0.9% 50 ml @ 100 mls/hr IVPB BID AG Rx#:[id number] metroNIDAZOLE-NS PMX 500 100 mg In Saline 1 100ml.bag @ 100 mls/hr IVPB Q8HR AG Rx#:[id number] Other: # Voids 1 3 # Bowel Movements 1 - Exam -GENERAL: The patient is alert and oriented x3, not in any acute distress. Cachectic, jaundiced HEENT: Pupils are round and equally reacting to light. EOMI. No scleral icterus. No conjunctival pallor. Normocephalic, atraumatic. No pharyngeal erythema. No thyromegaly. CARDIOVASCULAR: S1 and S2 present. No murmurs, rubs, or gallops. PULMONARY: Chest is clear to auscultation, no wheezing or crackles. -ABDOMEN: Soft, right upper quadrant tenderness, mild suprapubic tenderness,, less distended, normoactive bowel sounds. No palpable organomegaly. yellow discoloration of skin and sclerae, jaundice. Abdominal wall nodule in the epigastric area MUSCULOSKELETAL: No joint swelling or deformity. EXTREMITIES: No cyanosis, clubbing, or pedal edema. NEUROLOGICAL: Gross neurological examination did not reveal any focal deficits. SKIN: No rashes. No petechiae - Labs CBC & Chem 7: 05/09/21 06:55 05/09/21 06:55 Labs: Abnormal Lab Results - Last 24 Hours (Table) 05/08/21 05/08/21 05/09/21 Range/Units 08:49 08:49 06:55 WBC (4.50-10.00) X 10*3/uL RBC (4.10-5.20) X 10*6/uL Hgb (12.0-15.0) g/dL Hct (37.2-46.3) % RDW (11.5-14.5) % Plt Count 82 L (150-450) k/uL Plt Count Comment Absolute Nucleated RBC (0.00-0.00) X 10*3/uL Immature Gran # (0.00-0.04) X 10*3/uL Neutrophils # 15.0 H (1.3-7.7) k/uL Lymphocytes # 0.3 L (1.0-4.8) k/uL Eosinophils # (0.04-0.35) X 10*3/uL NRBC/100 WBC Diff (0.0-0.0) /100 WBCS Sodium 128 L (137-145) mmol/L Carbon Dioxide 12 L (22-30) mmol/L BUN 97 H (7-17) mg/dL Creatinine 1.90 H (0.52-1.04) mg/dL Est GFR (CKD-EPI)AfAm (60.0-200.0) Est GFR (CKD-EPI)NonAf (60.0-200.0) BUN/Creatinine Ratio (12.00-20.00) Ratio Glucose 113 H (74-99) mg/dL Calcium 8.3 L (8.4-10.2) mg/dL Magnesium (1.5-2.4) mg/dL Total Bilirubin 25.5 H* (0.2-1.3) mg/dL Conjugated Bilirubin 17.7 H (0.0-0.3) mg/dL Unconjugated Bilirubin 2.2 H (0.0-1.1) mg/dL Delta Bilirubin 5.6 H (0.0-0.2) mg/dL AST 104 H (14-36) U/L ALT 49 H (4-34) U/L Alkaline Phosphatase 315 H (38-126) U/L Total Protein 4.8 L (6.3-8.2) g/dL Albumin 2.7 L (3.5-5.0) g/dL Globulin (1.6-3.3) g/dL Albumin/Globulin Ratio (1.60-3.17) g/dL Procalcitonin 3.08 H (0.02-0.09) ng/mL 05/09/21 05/09/21 Range/Units 06:55 06:55 WBC 21.50 H (4.50-10.00) X 10*3/uL RBC 2.16 L (4.10-5.20) X 10*6/uL Hgb 6.7 L* (12.0-15.0) g/dL Hct 20.5 L (37.2-46.3) % RDW 29.0 H (11.5-14.5) % Plt Count 77 L (150-450) k/uL Plt Count Comment DECREASED A Absolute Nucleated RBC 0.02 H (0.00-0.00) X 10*3/uL Immature Gran # 0.19 H (0.00-0.04) X 10*3/uL Neutrophils # 20.62 H (1.3-7.7) k/uL Lymphocytes # 0.38 L (1.0-4.8) k/uL Eosinophils # 0 L (0.04-0.35) X 10*3/uL NRBC/100 WBC Diff 0.1 H (0.0-0.0) /100 WBCS Sodium 133 L (137-145) mmol/L Carbon Dioxide 13.9 L (22-30) mmol/L BUN 69.5 H (7-17) mg/dL Creatinine (0.52-1.04) mg/dL Est GFR (CKD-EPI)AfAm 50.1 L (60.0-200.0) Est GFR (CKD-EPI)NonAf 43.3 L (60.0-200.0) BUN/Creatinine Ratio 48.94 H (12.00-20.00) Ratio Glucose (74-99) mg/dL Calcium 8.3 L (8.4-10.2) mg/dL Magnesium 2.7 H (1.5-2.4) mg/dL Total Bilirubin 20.10 H* (0.2-1.3) mg/dL Conjugated Bilirubin (0.0-0.3) mg/dL Unconjugated Bilirubin (0.0-1.1) mg/dL Delta Bilirubin (0.0-0.2) mg/dL AST 97 H (14-36) U/L ALT 45 H (4-34) U/L Alkaline Phosphatase 286 H (38-126) U/L Total Protein 3.9 L (6.3-8.2) g/dL Albumin 3.2 L (3.5-5.0) g/dL Globulin 0.7 L (1.6-3.3) g/dL Albumin/Globulin Ratio 4.46 H (1.60-3.17) g/dL Procalcitonin (0.02-0.09) ng/mL Microbiology - Last 24 Hours (Table) 05/07/21 21:30 Blood Culture - Preliminary Blood No Growth after 24 hours 05/07/21 22:00 Blood Culture - Preliminary Blood No Growth after 24 hours 05/07/21 00:48 Urine Culture - Preliminary Urine,Voided Gram Neg Bacilli Assessment and Plan Assessment: Hyponatremia Acute kidney injury, could be prerenal. However patient was also on Lasix, A ldactone and ibuprofen which are stopped now. Acute urinary tract infection Dehydration and hypovolemia with low borderline blood pressure Colorectal cancer with metastasis to the liver, lung and abdominal Diarrhea, most likely reactive Plan: This is a pleasant 50 years old female presents with hyponatremia, RUDY, dehydration, diarrhea, UTI and metastatic colon cancer Discontinue IV fluids. Give albumin 1 Continue with ceftriaxone and Flagyl, urine culture is growing gram-negative bacilli. Continue with Aldactone at lower dose and Lasix monitor blood pressure. Di scontinue ibuprofen check for C. diff Check bladder scan oncology team consult. Labs and medication were reviewed.. Continue same treatment. Continue with symptomatic treatment. Resume home medication. Monitor lytes and vitals. DVT and GI prophylaxis. Further recommendations depends on the clinical course of the patient DVT prophylaxis: no Subcutaneous heparin in view of anemia (it wasn't started since admission) GI Prophylaxis: Ppi PT/OT: Pending Prognosis is guarded and generally poor given her metastatic advanced disease
[2021-05-09 18:03] LABS: Anisocytosis Marked; HCT 24.5 % (34.0-46.0); HGB 7.8 gm/dL (11.4-16.0); Hypochromasia Marked; MCH 33.2 pg (25.0-35.0); Macrocytosis Marked; RBC 2.36 m/uL (3.80-5.40); WBC 26.1 k/uL (3.8-10.6)
[2021-05-09 18:04] LABS: MCV 103.8 fL (80.0-100.0)
[2021-05-09 18:06] LABS: Platelet Count 86 k/uL (150-450)
[2021-05-09] MEDS: ALBUMIN HUMAN 25% 50 ML in EMPTY BAG 1 BAG IVPB SCH ×2 (19:46→20:46)
[2021-05-10] MEDS: metroNIDAZOLE-NS PMX 500 MG in SALINE 1 100ML.BAG IVPB SCH ×3 (09:49→23:32)
[2021-05-10] MEDS: SPIRONOLACTONE 25 MG TAB PO SCH ×2 (09:49→21:51)
[2021-05-10] MEDS: FUROSEMIDE 20 MG TAB PO SCH ×2 (09:49→17:12)
[2021-05-10] MEDS: PANTOPRAZOLE 40 MG/10 ML VIAL IVP SCH (09:49)
[2021-05-10 15:28] LABS: % Iron Saturation 33.22 (12.00-45.00)
[2021-05-10 15:44] LABS: Folate, Serum 7.1 ng/mL (4.40-31.00)
--- NOTE | 2021-05-10 15:46 | P.PN ---
Subjective Progress Note Date: 05/10/21 Principal diagnosis: metastatic colon adenocarcinoma In f/u pt remains alert, oriented. She is weak. Very jaundiced. Denied significant pruitis. Objective - Vital Signs Vital signs: Vital Signs Temp 97.9 F 05/10/21 11:38 Pulse 103 H 05/10/21 11:38 Resp 14 05/10/21 11:38 BP 98/65 05/10/21 11:38 Pulse Ox 96 05/10/21 11:38 Intake & Output 05/09/21 05/10/21 05/10/21 18:59 06:59 18:59 Other: # Voids 2 3 2 # Bowel Movements 2 1 1 - Constitutional General appearance: Present: cooperative, no acute distress, thin - EENT Eyes: Present: scleral icterus ENT: Present: hearing grossly normal - Respiratory Details: resp even and unlabored at rest - Integumentary Integumentary: Present: jaundiced - Musculoskeletal Musculoskeletal: Present: generalized weakness - Psychiatric Psychiatric: Present: A&O x's 3, appropriate affect - Labs CBC & Chem 7: 05/09/21 17:20 05/09/21 06:55 Labs: Abnormal Lab Results - Last 24 Hours (Table) 05/09/21 05/09/21 05/09/21 Range/Units 06:55 15:12 17:20 WBC 26.1 H (3.8-10.6) k/uL RBC 2.36 L (3.80-5.40) m/uL Hgb 7.8 L (11.4-16.0) gm/dL Hct 24.5 L (34.0-46.0) % MCV 103.8 H D (80.0-100.0) fL RDW 29.0 H (11.5-15.5) % Plt Count 86 L (150-450) k/uL Macrocytosis Marked A Iron 43 L (50-170) ug/dL TIBC 128 L (228-460) ug/dL Transferrin 91.6 L (204.0-354.0) mg/dL Crossmatch See Detail Microbiology - Last 24 Hours (Table) 05/07/21 22:00 Blood Culture - Preliminary Blood No Growth after 48 hours 05/07/21 21:30 Blood Culture - Preliminary Blood No Growth after 48 hours 05/07/21 00:48 Urine Culture - Final Urine,Voided Escherichia coli Assessment and Plan (1) Liver failure Current Visit: Yes Status: Acute Priority: High Code(s): K72.90 - HEPATIC FAILURE, UNSPECIFIED WITHOUT COMA SNOMED Code(s): 01696233 (2) Metastatic colon cancer in female Current Visit: Yes Status: Chronic Priority: High Code(s): C18.9 - MALIGNANT NEOPLASM OF COLON, UNSPECIFIED SNOMED Code(s): 299987718 Plan: Dr. Cruz is supposed to have a TC conversation with MD in [place] about pt condition. We will see what the recommendations are. If not FDA approved, unfortunately, we would not be able to provide orders for the same. Pt may have to return to [facility] or [place]. We will await conversation and communicate what treatments we are able order and provide. Pt is very ill and fragile. Doctor attests: I performed a history and physical examination of this patient, developed impression and plan of care, discussed with dictator. I agree with dictators note, documented as a scribe. Time with Patient: Greater than 30
[2021-05-10 20:27] VITALS: RESP 20; TEMP 97.8
[2021-05-11 04:48] LABS: Albumin 3.2 g/dL (3.8-4.9); Albumin/Globulin Ratio 3.52 (1.60-3.17); Anion Gap 16.7 mmol/L (10.00-18.00); BUN/Creat Ratio 43.55 Ratio (12.00-20.00); Blood Urea Nitrogen 46.6 mg/dL (9.0-27.0); Calcium 8.5 mg/dL (8.7-10.3); Carbon Dioxide 13.2 mmol/L (20.0-27.5); Globulin 0.9 g/dL (1.6-3.3); Non-African American GFR(CKD) 60.9 (60.0-200.0); Potassium 3.9 mmol/L (3.5-5.5); Total Bilirubin 18.4 mg/dL (0.30-1.20); Total Protein 4.2 g/dL (6.2-8.2)
[2021-05-11 04:58] LABS: African American GFR (CKD) 70.6 (60.0-200.0)
[2021-05-11 05:07] LABS: Basophils # (A) 0.03 X 10*3/uL (0.00-0.10); Basophils % (A) 0.1 %; Eosinophils # (A) 0 X 10*3/uL (0.04-0.35); Eosinophils % (A) 0 %; HCT 22.7 % (37.2-46.3); HGB 7.2 g/dL (12.0-15.0); Immature Grans, Automated 1.5 %; Lymphocytes # (A) 0.75 X 10*3/uL (0.90-5.00); Lymphocytes % (A) 2.6 %; MCHC 31.7 g/dL (32.0-37.0); MCV 97.8 fL (80.0-97.0); Monocytes # (A) 0.64 X 10*3/uL (0.20-1.00); Monocytes % (A) 2.2 %; NRBC Per 100 WBC 0.4 /100 WBCS (0.0-0.0); Neutrophils # (A) 26.98 X 10*3/uL (1.80-7.70); Neutrophils % (A) 93.6 %; Platelet Count 105 X 10*3/uL (140-440); RBC 2.32 X 10*6/uL (4.10-5.20); RDW 30.8 % (11.5-14.5); WBC 28.83 X 10*3/uL (4.50-10.00)
[2021-05-11] MEDS: metroNIDAZOLE-NS PMX 500 MG in SALINE 1 100ML.BAG IVPB SCH (08:08)
[2021-05-11 09:15] VITALS: BP 96/65; PULSE 110
[2021-05-11] MEDS: PANTOPRAZOLE 40 MG/10 ML VIAL IVP SCH (09:16)
[2021-05-11] MEDS: SPIRONOLACTONE 25 MG TAB PO SCH (09:16)
[2021-05-11] MEDS: FUROSEMIDE 20 MG TAB PO SCH (09:16)
[2021-05-11 10:23] LABS: Basophils # (A) 0.03 X 10*3/uL (0.00-0.10); Basophils % (A) 0.1 %; Eosinophils # (A) 0.02 X 10*3/uL (0.04-0.35); Eosinophils % (A) 0.1 %; HCT 21.3 % (37.2-46.3); Lymphocytes # (A) 0.71 X 10*3/uL (0.90-5.00); Lymphocytes % (A) 2.5 %; MCH 31.8 pg (27.0-32.0); MCHC 32.9 g/dL (32.0-37.0); MCV 96.8 fL (80.0-97.0); Mean Platelet Volume 11.7 fL (9.5-12.2); Monocytes # (A) 0.72 X 10*3/uL (0.20-1.00); Monocytes % (A) 2.5 %; Neutrophils # (A) 26.41 X 10*3/uL (1.80-7.70); Neutrophils % (A) 92.8 %; Platelet Count 103 X 10*3/uL (140-440); RDW 31.8 % (11.5-14.5); WBC 28.45 X 10*3/uL (4.50-10.00)
[2021-05-11 12:07] LABS: African American GFR (CKD) 76.6 (60.0-200.0); Albumin/Globulin Ratio 3.33 (1.60-3.17); Anion Gap 17.9 mmol/L (10.00-18.00); BUN/Creat Ratio 43.8 Ratio (12.00-20.00); Blood Urea Nitrogen 43.8 mg/dL (9.0-27.0); Calcium 8.3 mg/dL (8.7-10.3); Carbon Dioxide 12.1 mmol/L (20.0-27.5); Globulin 0.9 g/dL (1.6-3.3); Non-African American GFR(CKD) 66.1 (60.0-200.0); Potassium 3.6 mmol/L (3.5-5.5); Total Bilirubin 17.1 mg/dL (0.30-1.20); Total Protein 3.9 g/dL (6.2-8.2)
--- NOTE | 2021-05-11 15:16 | P.PN ---
Subjective Progress Note Date: 05/11/21 Principal diagnosis: metastatic colon adenocarcinoma In f/u pt remains alert, oriented. She is very weak, very jaundiced. She keeps repeating that she wants to go home. Objective - Vital Signs Vital signs: Vital Signs Temp 97.8 F 05/11/21 05:00 Pulse 110 H 05/11/21 09:15 Resp 20 05/11/21 05:00 BP 96/65 05/11/21 09:15 Pulse Ox 99 05/11/21 05:00 Intake & Output 05/10/21 05/11/21 05/11/21 18:59 06:59 18:59 Intake Total 150 540 Balance 150 540 Intake: Intake, IV Titration 150 Amount cefTRIAXone 1 gm In 50 Sodium Chloride 0.9% 50 ml @ 100 mls/hr IVPB BID AG Rx#:[id number] metroNIDAZOLE-NS PMX 500 100 mg In Saline 1 100ml.bag @ 100 mls/hr IVPB Q8HR AG Rx#:[id number] Oral 540 Other: # Voids 2 5 1 # Bowel Movements 1 1 - Constitutional Constitutional Comment(s): masseter muscle wasting, frail General appearance: Present: cooperative, no acute distress, thin - EENT Eyes: Present: EOMI, scleral icterus ENT: Present: hearing grossly normal - Respiratory Details: resp are even and unlabored - Integumentary Integumentary: Present: jaundiced - Musculoskeletal Musculoskeletal: Present: generalized weakness - Labs CBC & Chem 7: 05/11/21 05:30 05/11/21 05:30 Labs: Abnormal Lab Results - Last 24 Hours (Table) 05/09/21 05/09/21 05/10/21 Range/Units 06:55 06:55 17:04 WBC 28.83 H (4.50-10.00) X 10*3/uL RBC 2.32 L (4.10-5.20) X 10*6/uL Hgb 7.2 L (12.0-15.0) g/dL Hct 22.7 L (37.2-46.3) % MCV 97.8 H (80.0-97.0) fL MCHC 31.7 L (32.0-37.0) g/dL RDW 30.8 H (11.5-14.5) % Plt Count 105 L (140-440) X 10*3/uL Absolute Nucleated RBC 0.12 H (0.00-0.00) X 10*3/uL Immature Gran # 0.43 H (0.00-0.04) X 10*3/uL Neutrophils # 26.98 H (1.80-7.70) X 10*3/uL Lymphocytes # 0.75 L (0.90-5.00) X 10*3/uL Eosinophils # 0 L (0.04-0.35) X 10*3/uL NRBC/100 WBC Diff 0.4 H (0.0-0.0) /100 WBCS Carbon Dioxide (20.0-27.5) mmol/L BUN (9.0-27.0) mg/dL BUN/Creatinine Ratio (12.00-20.00) Ratio Calcium (8.7-10.3) mg/dL Iron 44 L 43 L (50-170) ug/dL TIBC 128 L (228-460) ug/dL Transferrin 91.6 L (204.0-354.0) mg/dL Ferritin 1335.0 H (10.0-291.0) ng/mL Total Bilirubin (0.30-1.20) mg/dL AST (13-35) U/L ALT (8-44) U/L Alkaline Phosphatase (41-126) U/L Total Protein (6.2-8.2) g/dL Albumin (3.8-4.9) g/dL Globulin (1.6-3.3) g/dL Albumin/Globulin Ratio (1.60-3.17) g/dL Vitamin B12 1850.0 H (200.0-944.0) pg/mL 05/10/21 05/11/21 05/11/21 Range/Units 17:04 05:30 05:30 WBC 28.45 H (4.50-10.00) X 10*3/uL RBC 2.20 L (4.10-5.20) X 10*6/uL Hgb 7.0 L (12.0-15.0) g/dL Hct 21.3 L (37.2-46.3) % MCV (80.0-97.0) fL MCHC (32.0-37.0) g/dL RDW 31.8 H (11.5-14.5) % Plt Count 103 L (140-440) X 10*3/uL Absolute Nucleated RBC 0.28 H (0.00-0.00) X 10*3/uL Immature Gran # 0.56 H (0.00-0.04) X 10*3/uL Neutrophils # 26.41 H (1.80-7.70) X 10*3/uL Lymphocytes # 0.71 L (0.90-5.00) X 10*3/uL Eosinophils # 0.02 L (0.04-0.35) X 10*3/uL NRBC/100 WBC Diff 1.0 H (0.0-0.0) /100 WBCS Carbon Dioxide 13.2 L 12.1 L (20.0-27.5) mmol/L BUN 46.6 H 43.8 H (9.0-27.0) mg/dL BUN/Creatinine Ratio 43.55 H 43.80 H (12.00-20.00) Ratio Calcium 8.5 L 8.3 L (8.7-10.3) mg/dL Iron (50-170) ug/dL TIBC (228-460) ug/dL Transferrin (204.0-354.0) mg/dL Ferritin (10.0-291.0) ng/mL Total Bilirubin 18.40 H* 17.10 H* (0.30-1.20) mg/dL AST 106 H 103 H (13-35) U/L ALT 45 H 45 H (8-44) U/L Alkaline Phosphatase 317 H 316 H (41-126) U/L Total Protein 4.2 L 3.9 L (6.2-8.2) g/dL Albumin 3.2 L 3.0 L (3.8-4.9) g/dL Globulin 0.9 L 0.9 L (1.6-3.3) g/dL Albumin/Globulin Ratio 3.52 H 3.33 H (1.60-3.17) g/dL Vitamin B12 (200.0-944.0) pg/mL Microbiology - Last 24 Hours (Table) 05/07/21 21:30 Blood Culture - Preliminary Blood No Growth after 72 hours 05/07/21 22:00 Blood Culture - Preliminary Blood No Growth after 72 hours Assessment and Plan (1) Liver failure Current Visit: Yes Status: Acute Priority: High Code(s): K72.90 - HEPATIC FAILURE, UNSPECIFIED WITHOUT COMA SNOMED Code(s): 89683440 (2) Metastatic colon cancer in female Current Visit: Yes Status: Chronic Priority: High Code(s): C18.9 - MALIGNANT NEOPLASM OF COLON, UNSPECIFIED SNOMED Code(s): 749735452 Plan: Office and personal cell were left with from [place] to call back. Dr. Cruz asked pt daughter what her understanding was of her mother's cancer, stage, prognosis. Her response was that she has been taking care of pt for 2 years now and she understands everything. Daughter explained that MD in [place] has pt taking low dose capcetabine to control liver inflammation while they are awaiting "treatment" to work. Also, while waiting for "all natural" treatment to work, pt is supposed to be being given saline and albumin for ascites/symptoms. All of this treatment is being managed by phone calls to/from [place] every 1-2 weeks and in person visits every 3 months. Daughter explained that she was told to get lab draws every other week by [facility] but, was not able to explain who would be responsible for the results of those labs. It was explained that non- FDA approved treatments will not likely be approved by insurance. It is not the practice of Medical Oncologists in [place] to give/approve or otherwise recommend non-FDA approved therapies under the label "cancer treatment". Only clinical trials offer non-FDA approved treatments (+/- standard of care). Those therapies/treatments are administered under close monitoring and supervision only after the clinical trial plan has been submitted for review and approval by IRB and Ethical committee. Pt is very ill and fragile. She wants to go home. Dr. Cruz did discuss palliative care with pt and daughter. They will speak with their home care nurse if they would like more details. Reviewed case with Manager Configuration who is assisting in getting pt home. Doctor attests: I performed a history and physical examination of this patient, developed impression and plan of care, discussed with dictator. I agree with dictators note, documented as a scribe. Time with Patient: Greater than 30
--- NOTE | 2021-05-14 13:44 | P.PN ---
Subjective Progress Note Date: 05/10/21 This is a pleasant 50 years old female with past medical history of colon cancer metastatic to the liver, lung, abdominal wall, she is following up with Dr. Cantu at [facility], last chemotherapy was about 6 months ago, then it was a [place] patient went to [place] to get experimental therapy, she stopped that 2 and came back to that states on 04/24/2021 she looks very weak and barely can tell from her weakness so information were obtained with the help of the daughter at bedside Patient has been getting IV fluids of albumin and [place] which help in her strength and appetite as well. Last week she went to [facility] emergency room where a drain was placed in her left lower abdomen, she visited the ER for abdominal distention, however as per daughter patient was found to disla ve UTI and she was started on Macrobid. Today her visiting nurse was checking on her at noticed her blood pressure on the low side, usually systolic blood pressure running in 90s for her but yesterday was 74/42 so she decided to come to emergency room. Patient she feels very weak and her voice is very low, she can talk 1 or 2 sentences before she got tired. However she is fully awake and oriented to time, place and person as she knows she is in [facility] and others. She denies any dizziness or chest pain or shortness of breath. She has visual abdominal pain from her cancer. But also she's been having diarrhea about 3 times per day for the last 3 days but no vomiting. She eats and drinks little bit. No dysuria or urgency but she has suprapubic tenderness. Repeat labs showed sodium improved 119 up to 124 since 3 PM yesterday total 11 AM this morning, i.e. over 20 hours. She was getting normal saline at 130 mL per hour and the emergency room 05/08/2021 Patient slightly better today, she is fully awake and oriented to time, place and person, she is not confused today for hepatic encephalopathy is not suspected and does not need to be treated. Patient already has diarrhea 3-4 times this morning therefore lactulose was discontinued. This diarrhea is present on admission and is unrelated to lactulose. Acute gastroenteritis versus UTI is suspected. Protonix calcitonin is elevated 8.1 and patient is placed on ceftriaxone and IV Flagyl with gentle hydration also received IV of vomiting per oncology/hematology team. Urine culture is pending. Borderline blood pressure is expected as she has liver disease desires infection. Her liver function tests improvement creatinine down slowly 2.0-1.9 we will keep monitoring. Sodium improved 123 up to 128 in 24 hours. There is evidence of hemo-delusion with WBC 19.2 down to 15.5, hemoglobin 9.6 down to 7.6 and platelets 115 to 82.. Prognosis remains very poor Last night patient and daughter give her medication outside and without approval of the hospital staff, it was addressed by the bedside nurse during the night stocker, please refer to her notes. Patient and daughter consult to take indication only from the hospital and they agree Liver ultrasound showing hepatomegaly with masses, dilated common bile duct, complex area could be complex ascites versus metastatic mass in the abdomen. No obstructive uropathy 05/09/2021 Patient today reports improvement, however she still generally weak and elda diced. Her abdominal distention is significantly lost almost gone today on examination and her right upper quadrant tenderness and suprapubic tenderness present on admission are completely resolved today. Patient not sure if he still have diarrhea and how many times. Daughter at bedside as well. Her labs showing improvement with WBC went up slightly to 21.5 but her procalcitonin improved 8.1 down to 3.0. Platelets still low 77 which is expected however her hemoglobin coming down to 9.6, 7.6 and today 6.7 and there is no evidence of bleeding, we will order anemia workup. Also went on to repeat hemoglobin in the evening and if drops less than 6.5 we'll give 1 unit of blood transfusion. Creatinine actually back to reference range today at 1.4, sodium improved 133, there were enzymes still trending down with AST 97 and ALT 45 bilirubin although still significantly elevated but is also coming nicely down 28, 25 and 20 today. Blood pressure on the low side 77/61, IV fluids were already stopped therefore we going to give albumin times one also with lower the dose of Aldactone 50 down to 25 mg twice a day. Also patient remains on small dose of Lasix 20 mg twice a day. In the meantime she remains on ceftriaxone, IV Flagyl, 05/10/2021 Patient is currently resting in the bed. Awake alert and oriented x3. But feels very weak. Significant yellowish discoloration of the skin. Patient has been afebrile. Continue IV antibiotics in the form of ceftriaxone and Flagyl for possible cholangitis. Leukocytosis is trending down. Bilirubin level is also trending downward significantly elevated. Patient does have metastatic colon cancer. Discussed with her daughter at bedside and would like to follow-up with her physician at [place]. Oncology is planning to discuss the plan of care with her physician. Apparently patient's daughter is very unrealistic about her treatment plan. Patient has been using medications not improved by FDA. Current medications reviewed. Objective - Vital Signs Vital signs: Vital Signs Temp 97.9 F 05/10/21 11:38 Pulse 103 H 05/10/21 11:38 Resp 14 05/10/21 11:38 BP 98/65 05/10/21 11:38 Pulse Ox 96 05/10/21 11:38 Intake & Output 05/09/21 05/10/21 05/10/21 18:59 06:59 18:59 Intake Total 150 Balance 150 Intake: Intake, IV Titration 150 Amount cefTRIAXone 1 gm In 50 Sodium Chloride 0.9% 50 ml @ 100 mls/hr IVPB BID AG Rx#:[id number] metroNIDAZOLE-NS PMX 500 100 mg In Saline 1 100ml.bag @ 100 mls/hr IVPB Q8HR AG Rx#:[id number] Other: # Voids 2 3 2 # Bowel Movements 2 1 1 - Exam - Exam -GENERAL: The patient is alert and oriented x3, not in any acute distress. Cachectic, jaundiced HEENT: Pupils are round and equally reacting to light. EOMI. No scleral icterus. No conjunctival pallor. Normocephalic, atraumatic. No pharyngeal erythema. No thyromegaly. CARDIOVASCULAR: S1 and S2 present. No murmurs, rubs, or gallops. PULMONARY: Chest is clear to auscultation, no wheezing or crackles. -ABDOMEN: Soft, right upper quadrant tenderness, mild suprapubic tenderness,, less distended, normoactive bowel sounds. No palpable organomegaly. yellow discoloration of skin and sclerae, jaundice. Abdominal wall nodule in the epigastric area MUSCULOSKELETAL: No joint swelling or deformity. EXTREMITIES: No cyanosis, clubbing, or pedal edema. NEUROLOGICAL: Gross neurological examination did not reveal any focal deficits. SKIN: No rashes. No petechiae - Labs CBC & Chem 7: 05/11/21 05:30 05/11/21 05:30 Labs: Abnormal Lab Results - Last 24 Hours (Table) 05/09/21 05/09/21 05/09/21 Range/Units 06:55 06:55 15:12 Iron 44 L 43 L (50-170) ug/dL TIBC 128 L (228-460) ug/dL Transferrin 91.6 L (204.0-354.0) mg/dL Ferritin 1335.0 H (10.0-291.0) ng/mL Vitamin B12 1850.0 H (200.0-944.0) pg/mL Crossmatch See Detail Microbiology - Last 24 Hours (Table) 05/07/21 22:00 Blood Culture - Preliminary Blood No Growth after 48 hours 05/07/21 21:30 Blood Culture - Preliminary Blood No Growth after 48 hours 05/07/21 00:48 Urine Culture - Final Urine,Voided Escherichia coli Assessment and Plan Assessment: Hyponatremia Acute kidney injury, could be prerenal. However patient was also on Lasix, Aldactone and ibuprofen which are stopped now. Acute urinary tract infection possible cholagitis Dehydration and hypovolemia with low borderline blood pressure Colorectal cancer with metastasis to the liver, lung and abdominal Diarrhea, most likely reactive Plan: This is a pleasant 50 years old female presents with hyponatremia, RUDY, dehydration, diarrhea, UTI and metastatic colon cancer Discontinue IV fluids. Give albumin 1 Continue with ceftriaxone and Flagyl, urine culture is growing gram-negative bacilli./ Ecoli Continue with Aldactone at lower dose and Lasix monitor blood pressure. Discontinue ibuprofen check for C. diff Check bladder scan oncology team consult. Labs and medication were reviewed.. Monitor lytes and vitals. DVT and GI prophylaxis. Further recommendations depends on the clinical course of the patient DVT prophylaxis: no Subcutaneous heparin in view of anemia (it wasn't started since admission) GI Prophylaxis: Ppi PT/OT: Pending Prognosis is guarded and generally poor given her metastatic advanced disease Time with Patient: Greater than 30
--- NOTE | 2021-05-14 13:59 | P.DS ---
Providers Date of admission: 05/06/21 15:59 Expected date of discharge: 05/11/21 Attending physician: Kourtney Giordano Consults: 05/07/21 09:06 Consult Physician Stat Consulting Provider: José Cruz Consult Reason/Comments: metastatic colon ca/ end stage liver failure Do you want consulting provider notified?: Yes Primary care physician: Criselda Bose [facility] Course: Discharge diagnosis Acute kidney injury, could be prerenal. However patient was also on Lasix, Aldactone and ibuprofen which are stopped now. E. coli Acute urinary tract infection possible cholagitis Hyponatremia Dehydration and hypovolemia with low borderline blood pressure Colorectal cancer with metastasis to the liver, lung and abdominal Diarrhea, most likely reactive Hospital course This is a pleasant 50 years old female with past medical history of colon cancer metastatic to the liver, lung, abdominal wall, she is following up with Dr. Cantu at [facility], last chemotherapy was about 6 months ago, then it was a [place] patient went to [place] to get experimental therapy, she stopped that 2 and came back to that [facility] on 04/24/2021 she looks very weak and barely can tell from her weakness so information were obtained with the help of the daughter at bedside Patient has been getting IV fluids of albumin and [place] which help in her strength and appetite as well. Last week she went to [facility] emergency room where a drain was placed in her left lower abdomen, she visited the ER for abdominal distention, however as per daughter patient was found to have UTI and she was started on Macrobid. Today her visiting nurse was checking on her at noticed her blood pressure on the low side, usually systolic blood pressure running in 90s for her but yesterday was 74/42 so she decided to come to emergency room. Patient she feels very weak and her voice is very low, she can talk 1 or 2 sentences before she got tired. However she is fully awake and oriented to time, place and person as she knows she is in [facility] and others. She denies any dizziness or chest pain or shortness of breath. She has visual abdominal pain from her cancer. But also she's been having diarrhea about 3 times per day for the last 3 days but no vomiting. She eats and drinks little bit. No dysuria or urgency but she has suprapubic tenderness. Repeat labs showed sodium improved 119 up to 124 since 3 PM yesterday total 11 AM this morning, i.e. over 20 hours. She was getting normal saline at 130 mL per hour and the emergency room 05/08/2021 Patient slightly better today, she is fully awake and oriented to time, place and person, she is not confused today for hepatic encephalopathy is not suspected and does not need to be treated. Patient already has diarrhea 3-4 times this morning therefore lactulose was discontinued. This diarrhea is present on admission and is unrelated to lactulose. Acute gastroenteritis versus UTI is suspected. Protonix calcitonin is elevated 8.1 and patient is placed on ceftriaxone and IV Flagyl with gentle hydration also received IV of vomiting per oncology/hematology team. Urine culture is pending. Borderline blood pressure is expected as she has liver disease desires infection. Her liver function tests improvement creatinine down slowly 2.0-1.9 we will keep monitoring. Sodium improved 123 up to 128 in 24 hours. There is evidence of hemo-delusion with WBC 19.2 down to 15.5, hemoglobin 9.6 down to 7.6 and platelets 115 to 82.. Prognosis remains very poor Last night patient and daughter give her medication outside and without approval of the hospital staff, it was addressed by the bedside nurse during the retail shift leader, please refer to her notes. Patient and daughter consult to take indication only from the hospital and they agree Liver ultrasound showing hepatomegaly with masses, dilated common bile duct, complex area could be complex ascites versus metastatic mass in the abdomen. No obstructive uropathy 05/09/2021 Patient today reports improvement, however she still generally weak and jaundiced. Her abdominal distention is significantly lost almost gone today on examination and her right upper quadrant tenderness and suprapubic tenderness present on admission are completely resolved today. Patient not sure if he still have diarrhea and how many times. Daughter at bedside as well. Her labs showing improvement with WBC went up slightly to 21.5 but her procalcitonin improved 8.1 down to 3.0. Platelets still low 77 which is expected however her hemoglobin coming down to 9.6, 7.6 and today 6.7 and there is no evidence of bleeding, we will order anemia workup. Also went on to repeat hemoglobin in the evening and if drops less than 6.5 we'll give 1 unit of blood transfusion. Creatinine actually back to reference range today at 1.4, sodium improved 133, there were enzymes still trending down with AST 97 and ALT 45 bilirubin although still significantly elevated but is also coming nicely down 28, 25 and 20 today. Blood pressure on the low side 77/61, IV fluids were already stopped therefore we going to give albumin times one also with lower the dose of Aldactone 50 down to 25 mg twice a day. Also patient remains on small dose of Lasix 20 mg twice a day. In the meantime she remains on ceftriaxone, IV Flagyl, 05/10/2021 Patient is currently resting in the bed. Awake alert and oriented x3. But feels very weak. Significant yellowish discoloration of the skin. Patient has been afebrile. Continue IV antibiotics in the form of ceftriaxone and Flagyl for possible cholangitis. Leukocytosis is trending down. Bilirubin level is also trending downward significantly elevated. Patient does have metastatic colon cancer. Discussed with her daughter at bedside and would like to follow-up with her physician at [place]. Oncology is planning to discuss the plan of care with her physician. Apparently patient's daughter is very unrealistic about her treatment plan. Patient has been using medications not improved by FDA. 05/11/2021 Patient is awake alert and oriented x3. Afebrile. Continued on antibiotics in the form of ceftriaxone and Flagyl. No nausea vomiting or diarrhea. Patient is still hypotensive but asymptomatic. No headache or dizziness or lightheadedness. No chest pain or shortness of breath. Patient does have bilateral leg swelling. Patient will be started on Lasix and continue with Aldactone as well as blood pressure tolerates. Patient is being discharged home today. Patient and her daughter would like to follow-up with her physician at [place]. Patient was previously seen at [facility]. Currently with antibiotic course with Ceftin and Flagyl for 4 more days. - Exam -GENERAL: The patient is alert and oriented x3, not in any acute distress. Cachectic, jaundiced HEENT: Pupils are round and equally reacting to light. EOMI. No scleral icterus. No conjunctival pallor. Normocephalic, atraumatic. No pharyngeal erythema. No thyromegaly. CARDIOVASCULAR: S1 and S2 present. No murmurs, rubs, or gallops. PULMONARY: Chest is clear to auscultation, no wheezing or crackles. -ABDOMEN: Soft, right upper quadrant tenderness, mild suprapubic tenderness,, less distended, normoactive bowel sounds. No palpable organomegaly. yellow discoloration of skin and sclerae, jaundice. Abdominal wall nodule in the epigastric area MUSCULOSKELETAL: No joint swelling or deformity. EXTREMITIES: No cyanosis, clubbing, or pedal edema. NEUROLOGICAL: Gross neurological examination did not reveal any focal deficits. SKIN: No rashes. No petechiae Vital signs: Vital Signs Temp 97.8 F 05/11/21 05:00 Pulse 110 H 05/11/21 09:15 Resp 20 05/11/21 05:00 BP 96/65 05/11/21 09:15 Pulse Ox 99 05/11/21 05:00 Intake & Output 05/10/21 05/11/21 05/11/21 18:59 06:59 18:59 Intake Total 150 540 Balance 150 540 Intake: Intake, IV Titration 150 Amount cefTRIAXone 1 gm In 50 Sodium Chloride 0.9% 50 ml @ 100 mls/hr IVPB BID AG Rx#:[id number] metroNIDAZOLE-NS PMX 500 100 mg In Saline 1 100ml.bag @ 100 mls/hr IVPB Q8HR AG Rx#:[id number] Oral 540 Other: # Voids 2 5 1 # Bowel Movements 1 1 Patient Condition at Discharge: Critical Plan - Discharge Summary New Discharge Prescriptions: New metroNIDAZOLE [Flagyl] 500 mg PO TID 4 Days #12 tab levoFLOXacin 500 mg PO DAILY #4 tablet Continue Samyr 500mg 500 mg PO TID [place] 500mg 1,000 mg PO BID Spironolactone 50 mg PO BID Ibuprofen [Motrin Ib] 200 mg PO BID Furosemide [Lasix] 20 mg PO BID Ursofalk 250mg 250 mg PO TID Justus 0.5mg 2 mg PO TID Discharge Medication List Justus 0.5mg 2 mg PO TID 05/06/21 [History] Furosemide [Lasix] 20 mg PO BID 05/06/21 [History] Ibuprofen [Motrin Ib] 200 mg PO BID 05/06/21 [History] Samyr 500mg 500 mg PO TID 05/06/21 [History] Skemca 500mg 1,000 mg PO BID 05/06/21 [History] Spironolactone 50 mg PO BID 05/06/21 [History] Ursofalk 250mg 250 mg PO TID 05/06/21 [History] levoFLOXacin 500 mg PO DAILY #4 tablet 05/11/21 [Rx] metroNIDAZOLE [Flagyl] 500 mg PO TID 4 Days #12 tab 05/11/21 [Rx] Follow up Appointment(s)/Referral(s): [facility] [NON-STAFF] - 1 Week Criselda Bose MD [Primary Care Provider] - 05/17/21 2:00 pm (You will see Joyce.) [facility], [NON-STAFF] - 1 Week Patient Instructions/Handouts: Acute Liver Failure (DC) Discharge Disposition: HOME WITH HOME HEALTH SERVICES
== END 2021-05-11 17:40 | disposition home health service (06) | DRG 641 ==
LOC: EC 13:44 → 5NMEDONC 15:59 → 4SSUR 21:57 → 5NMEDONC 05-07 01:13 → 3SCARD 05-07 09:49 → 5NMEDONC 05-08 16:14
PROVIDERS: ADMIT Hospitalist; ATTEND Hospitalist
DX: E87.1 Hypo-osmolality and hyponatremia (principal); N17.9 Acute kidney failure, unspecified; R64 Cachexia; R18.8 Other ascites; C79.89 Secondary malignant neoplasm of other specified sites; C78.7 Secondary malignant neoplasm of liver and intrahepatic bile duct; C19 Malignant neoplasm of rectosigmoid junction; C78.00 Secondary malignant neoplasm of unspecified lung; N39.0 Urinary tract infection, site not specified; K72.90 Hepatic failure, unspecified without coma; I95.9 Hypotension, unspecified; E86.1 Hypovolemia; G89.3 Neoplasm related pain (acute) (chronic); E86.0 Dehydration; R19.7 Diarrhea, unspecified; Z68.20 Body mass index [BMI] 20.0-20.9, adult; Z79.1 Long term (current) use of non-steroidal anti-inflammatories (NSAID); Z79.899 Other long term (current) drug therapy; Z92.21 Personal history of antineoplastic chemotherapy
CPT/HCPCS: 36415; 76705; 76770; 80048; 80053; 80076; 81001; 82009; 82140; 82607; 82728; 82746; 82803; 83540; 83550; 83605; 83735; 84145; 85025; 85027; 85384; 85610; 85730; 86850; 86900; 86901; 87040; 87077; 87086; 87186; 93005; 99285